=== PATIENT | female | born 1950 | race Caucasian/White ===

== ENCOUNTER → 2016-10-08 | Outpatient (CLI) | payer BC ==
[~2016-10-08] MED LIST: CLTP PO; GLCSC500400; LISI-787 PO; LRT5 PO; MULT-506 PO
--- NOTE | 2016-10-08 15:48 | MAMMOGRAPHY REPORT ---
BILATERAL DIGITAL SCREENING MAMMOGRAM WITH CAD: 10/08/2016 CLINICAL HISTORY: Routine screening. Patient has no complaints. TECHNIQUE: Bilateral CC and MLO views were obtained. Current study was also evaluated with a Comput er Aided Detection (CAD) system. COMPARISON: Comparison is made to exams dated: 09/26/2015 mammogram, 09/22/2014 mammogram, 09/21/2013 m ammogram, 09/19/2012 mammogram, 02/14/2012 mammogram, and 02/14/2012 ultrasound - [facility]. BREAST COMPOSITION: There are scattered areas of fibroglandular density in both breasts. FINDINGS: There is stable asymmetry in the lateral left breast. Scattered benign-appearing calcific ations in the left breast. No new suspicious mass, architectural distortion or cluster of microcalc ifications is seen. IMPRESSION: ACR BI-RADS CATEGORY 1: NEGATIVE There is no mammographic evidence of malignancy. A 1 year screening mammogram is recommended. The p atient will receive written notification of the results. Approximately 10% of breast cancers are not detected with mammography. A negative mammographic repor t should not delay biopsy if a clinically suggestive mass is present. Nanci Escoto M.D. ay/:10/08/2016 15:02:24 Board Certified Arts Therapist: Rona Ricardo, [facility] letter sent: Normal 1/2 BI-RADS Code: ACR BI-RADS Category 1: Negative
== END | disposition home or self-care (01) ==
LOC: C.MAMM 08:21
PROVIDERS: ATTEND Obstetrics & Gynecology
DX: Z12.31 Encounter for screening mammogram for malignant neoplasm of breast (principal)

== ENCOUNTER → 2017-10-10 | Outpatient (CLI) | payer BC ==
--- NOTE | 2017-10-10 15:32 | MAMMOGRAPHY REPORT ---
BILATERAL DIGITAL SCREENING MAMMOGRAM TOMOSYNTHESIS WITH CAD: 10/10/2017 CLINICAL HISTORY: Routine screening. Patient has no complaints. TECHNIQUE: Breast tomosynthesis in addition to standard 2D mammography was performed. Current study was also evaluated with a Computer Aided Detection (CAD) system. COMPARISON: Comparison is made to exams dated: 10/08/2016 mammogram, 09/26/2015 mammogram, 09/22/2014 ma mmogram, 09/21/2013 mammogram, 09/19/2012 mammogram, and 02/14/2012 mammogram - [facility]ter. BREAST COMPOSITION: There are scattered areas of fibroglandular density in both breasts. FINDINGS: No suspicious masses, calcifications, or areas of architectural distortion are noted in ei ther breast. There has been no significant interval change compared to prior exams. Benign-appearing left breast calcifications are again noted. IMPRESSION: ACR BI-RADS CATEGORY 2: BENIGN There is no mammographic evidence of malignancy. A 1 year screening mammogram is recommended. The pa tient will receive written notification of the results. Approximately 10% of breast cancers are not detected with mammography. A negative mammographic report should not delay biopsy if a clinically suggestive mass is present. Rox Sanchez M.D. /:10/10/2017 08:40:55 Mix Mill Tender: Zoe BRYAN)(Ariadna), [facility] letter sent: Normal 1/2 BI-RADS Code: ACR BI-RADS Category 2: Benign
== END | disposition home or self-care (01) ==
LOC: C.MAMM 08:19
PROVIDERS: ATTEND Obstetrics & Gynecology
DX: Z12.31 Encounter for screening mammogram for malignant neoplasm of breast (principal)

== ENCOUNTER 2023-12-18 15:47 | Inpatient (IN) ==
--- NOTE | 2023-12-18 15:59 | Emergency Department Note ---
Impression & Plan Atrial fibrillation with rapid ventricular response, Post-operative pain, Hypokalemia ED Provider Note NAME: RUFUS WHELAN AGE: 73 SEX: F : 1950 ARRIVES VIA: Ambulance INFORMANT: Patient ED PROVIDER(S): Arturo Quintanilla DO CHIEF COMPLAINT: Afib RVR HPI: Patient is a 73-year-old female with a past medical history of hypertension, hyperlipidemia, that presents to the ER for A-fib with RVR. She had a left knee scope performed at [facility] just prior to arrival for a partially torn meniscus. During the procedure she had went into A-fib with RVR. She was informed of this when she woke up. She was asymptomatic. She was transported via EMS from [facility] to [facility]. She was given 10 of Cardizem at the start of transportation. She denies any headache or change in vision. No chest pain or shortness of breath. No dizziness or lightheadedness. No other exacerbating or remitting factors. ADDITIONAL HISTORY OBTAINED: Per HPI Chronic Medical/Social Conditions Affecting Care: Per HPI PAST MEDICAL HISTORY:See Below PAST SURGICAL HISTORY:See Below FAMILY HISTORY:See Below SOCIAL HISTORY:See Below HOME MEDICATIONS:See Below ALLERGIES:See Below VITALS:See Below PHYSICAL EXAMINATION: GENERAL: Sitting up in bed, alert, well appearing, well nourished, no distress, non-toxic EYE EXAM: normal conjunctiva. PERRL and EOM's grossly intact. OROPHARYNX: no exudate, no erythema, lips, buccal mucosa, and tongue normal and mucous membranes are moist NECK: supple, no nuchal rigidity, no adenopathy, non-tender LUNGS: Clear to auscultation. Normal chest wall mechanics HEART: Tachycardic and irregular regular, S1 normal and S2 normal ABDOMEN: abdomen soft, non-tender, normo-active bowel sounds, no masses, no rebound or guarding. UPPER EXTREMITIES: upper extremities are grossly normal. LOWER EXTREMITIES: No pitting edema. NEURO EXAM: Normal sensorium, cranial nerves II-XII grossly intact, normal speech, no gross weakness of arms, no gross weakness of legs. MEDICAL DECISION MAKING: Patient is a 73-year-old female who presents ER for above-stated complaint. IV was established medicals obtained. Labs show no significant leukocytosis or anemia. BMP with mild hypokalemia at 3.4. LFTs, bilirubin, was unremarkable. Troponin was negative initially. Repeat troponin was obtained after patient converted following being placed on a Cardizem drip here and given another bolus. Heart rate has remained in the 50s to 60s. She is asymptomatic at this time. External records were reviewed from [facility] which shows an EKG on January 25, 2017 which had a right bundle branch block. Repeat troponin was elevated at just under 20. This did double. Favor that this likely rate related to the Afib w/ RVR and a combination of anesthesia/procedure and with this case was discussed with the hospitalist for further evaluation management treatment. Patient is currently asymptomatic and resting comfortably. Will defer to the hospitalist for further management. Consults/Care Managements Discussions: Per [facility] Triage Nursing notes reviewed. Limited review of prior medical records performed Vital Signs: reviewed and remarkable for no significant abnormalities Differential diagnosis: Cardiac ischemia, aortic dissection, pulmonary embolism, pneumothorax, pneumonia, pericarditis, myocarditis, esophageal rupture, GERD, cholecystitis, pancreatitis, musculoskeletal, as well as other pathologies. ER treatment provided: See below Diagnostics interpreted by me include EKG and cardiac monitoring as listed below: -Cardiac Monitoring: An order was placed for continuous cardiac monitoring. The monitor shows a rate of 145 with AFIB rhythm. -ECG: A-fib with RVR rate of 135 Normal axis Right bundle branch block QTc 435 EKG #2 Sinus rhythm rate of 72 Normal axis Right bundle branch block QTc 466 Sinus rhythm rate of 69 Normal axis Right bundle branch block Nonspecific ST wave changes in V1 through V3 QTc 454 External records were reviewed in regards to the EKG performed on January 25, 2017 which shows a right bundle branch block from [facility] with a rate of 56 -Laboratory studies:Interpreted by me as stated above in MDM and shown below. Imaging studies: Xrays: As interpreted by me:none CTs show: none Procedures:none Critical Care: I have personally spent 31 minutes of critical care time in the direct management of this patient. This includes bedside care, interpretation of diagnostic studies, and testing, discussion with consultants, patient, and family members, and other required patient management activities. This 31 minutes is in excess of all separately billable procedures. Past Med/Surg History Problem List (Updated 12/18/23 @ 18:35 by Arturo Quintanilla DO) Hypokalemia (Acute) Post-operative pain (Acute) Atrial fibrillation with rapid ventricular response (Acute) Medical History Hypertension Uterine leiomyoma Surgical History H/O tubal ligation History of cholecystectomy History of left oophorectomy Family History Aunt Breast cancer Grandfather (Maternal) Diabetes Grandmother (Maternal) Diabetes Mother Diabetes Denies family history of Ovarian cancer Colorectal cancer Social History (Updated 02/27/22 @ 09:49 by Maria Alejandra Knott LPN) Smoking Status: Never smoker Do You Dip or Chew Tobacco: No; Preferred Language: Macanese Feels Safe at Home: Yes Allergies Allergies Allergy/AdvReac Type Severity Reaction Status Date / Time promethazine Allergy Intermediate HIVES Verified 12/18/23 16:41 Home Meds Home Medications Medication Instructions Recorded Confirmed atorvastatin 40 mg tablet 40 mg PO DAILY 03/19/23 12/18/23 lisinopril 20 1 tab PO DAILY 03/19/23 12/18/23 mg-hydrochlorothiazide 25 mg tablet calcium carbonate 500 mg PO DAILY 12/18/23 12/18/23 multivitamin 1 tab PO DAILY 12/18/23 12/18/23 Results & Data (ED) Vital Signs Vital Signs - 24 hr 12/18/23 15:52 12/18/23 15:53 12/18/23 15:54 Temperature 36.4 C L Temperature Source Oral Pulse Rate 147 H 135 H Pulse Rate [Apical] Pulse Rate from SpO2 Sensor Respiratory Rate 16 Respiratory Depth Normal Blood Pressure 87/71 L Blood Pressure [Right Arm] Blood Pressure Mean 76 Blood Pressure Mean [Right Arm] Blood Pressure Position Semi-fowlers Pulse Oximetry 96 Oxygen Delivery Method Room Air Room Air Sepsis Recent Fever Within 48 Hours No Sepsis New/Unexplained Change in Mental Status No Sepsis Action Taken by Nursing No Action Required 12/18/23 16:00 12/18/23 16:00 12/18/23 16:01 Temperature Temperature Source Pulse Rate Pulse Rate [Apical] 146 H Pulse Rate from SpO2 Sensor Respiratory Rate 22 Respiratory Depth Blood Pressure 116/99 Blood Pressure [Right Arm] 116/99 Blood Pressure Mean 108 Blood Pressure Mean [Right Arm] 104 Blood Pressure Position Pulse Oximetry Oxygen Delivery Method Room Air Sepsis Recent Fever Within 48 Hours Sepsis New/Unexplained Change in Mental Status Sepsis Action Taken by Nursing 12/18/23 16:12 12/18/23 16:18 12/18/23 16:21 Temperature Temperature Source Pulse Rate 134 H Pulse Rate [Apical] Pulse Rate from SpO2 Sensor 116 H Respiratory Rate 27 H Respiratory Depth Blood Pressure 113/86 103/62 Blood Pressure [Right Arm] Blood Pressure Mean 94 91 Blood Pressure Mean [Right Arm] Blood Pressure Position Pulse Oximetry 94 Oxygen Delivery Method Sepsis Recent Fever Within 48 Hours Sepsis New/Unexplained Change in Mental Status Sepsis Action Taken by Nursing 12/18/23 16:26 12/18/23 16:36 12/18/23 16:45 Temperature Temperature Source Pulse Rate 120 H 166 H Pulse Rate [Apical] 135 H Pulse Rate from SpO2 Sensor Respiratory Rate 20 25 H Respiratory Depth Blood Pressure 90/65 L 131/97 Blood Pressure [Right Arm] 104/71 Blood Pressure Mean 80 108 Blood Pressure Mean [Right Arm] 82 Blood Pressure Position Pulse Oximetry 95 Oxygen Delivery Method Room Air Sepsis Recent Fever Within 48 Hours Sepsis New/Unexplained Change in Mental Status Sepsis Action Taken by Nursing 12/18/23 16:54 12/18/23 18:00 Temperature Temperature Source Pulse Rate 74 Pulse Rate [Apical] 61 Pulse Rate from SpO2 Sensor 75 Respiratory Rate 15 20 Respiratory Depth Blood Pressure 119/81 Blood Pressure [Right Arm] 127/74 Blood Pressure Mean 93 Blood Pressure Mean [Right Arm] 91 Blood Pressure Position Pulse Oximetry 96 96 Oxygen Delivery Method Room Air Sepsis Recent Fever Within 48 Hours Sepsis New/Unexplained Change in Mental Status Sepsis Action Taken by Nursing Laboratory Data 12/18/23 16:00 12/18/23 16:00 Lab Results 12/18/23 Range/Units 16:00 WBC 6.44 (4.8-10.8) K/ul RBC 5.35 (4.20-5.40) M/uL Hgb 16.5 H (12.0-16.0) g/dl Hct 49.0 H (37.0-47.0) % MCV 91.6 (80.0-100.0) fL MCH 30.8 (25.0-34.0) pg MCHC 33.7 (32.0-36.0) g/dL RDW Std Deviation 50.9 H (36.4-46.3) fL RDW Coeff of [place] 15.5 H (11.5-14.5) % Plt Count 292 (130-400) K/uL MPV 11.1 (9.4-12.4) fL Immature Gran % (Auto) 0.3 % Neut % (Auto) 84.5 % Lymph % (Auto) 10.6 % [place] % (Auto) 2.3 % Eos % (Auto) 1.7 % Baso % (Auto) 0.6 % Neut # (Auto) 5.44 (1.40-6.50) K/uL Lymph # (Auto) 0.68 L (1.20-3.40) K/uL [place] # (Auto) 0.15 (0.11-0.59) K/uL Eos # (Auto) 0.11 (0.00-0.50) K/uL Baso # (Auto) 0.04 (0.00-0.20) K/uL Immature Gran # (Auto) 0.02 (0.01-0.20) K/uL Sodium 141 (136-145) mmol/L Potassium 3.4 L (3.5-5.1) mmol/L Chloride 106 (98-107) mmol/L Carbon Dioxide 26 (21-32) mmol/L Anion Gap 9 (3-11) BUN 10 (6-23) mg/dl Creatinine 0.84 (0.6-1.2) mg/dl Est Cr Clr Drug Dosing 59.3 ml/min Est GFR ( Amer) 79.4 ml/min Est GFR (Non-Af Amer) 68.5 ml/min BUN/Creatinine Ratio 11.9 (10-20) Glucose 124 H (70-99(Fasting)) mg/dl Calcium 9.5 (8.6-10.3) mg/dl Total Bilirubin 1.1 H (0.2-1.0) mg/dl AST 26 (13-39) U/L ALT 20 (7-52) U/L Alkaline Phosphatase 87 (34-104) U/L Troponin I High Sens 8.2 (0-14) pg/ml Total Protein 7.1 (6.0-8.3) gm/dl Albumin 4.2 (3.4-5.0) gm/dl Globulin 2.9 (2.5-4.0) gm/dl Albumin/Globulin Ratio 1.4 (0.9-2) Lipase 19 (11-82) U/L Administered Medications Diltiazem HCl 125 mg/ Dextrose 125 mls @ 0 mls/hr IV .Q0M [facility]; Protocol Stop: 01/17/24 16:14 Last Titration: 12/18/23 16:53 Dose: 0 mg/hr, 0 mls/hr Documented By: VLADIMIR Co-signed By: VAL Admin: 12/18/23 16:45 Dose: 5 mg/hr, 5 mls/hr Documented By: VLADIMIR Co-signed By: BRISEIDA Discontinued Medications Diltiazem HCl (Diltiazem Hcl 5 Mg/Ml 5 Ml Vial) 10 mg IV NOW STA Stop: 12/18/23 16:08 Last Admin: 12/18/23 16:12 Dose: 10 mg Documented By: VLADIMIR Co-signed By: VAL Sodium Chloride (Nss) 1,000 mls @ 999 mls/hr IV .Q1H1M ONE Stop: 12/18/23 17:58 Last Admin: 12/18/23 17:52 Dose: 999 mls/hr Documented By: VLADIMIR Imaging Data Radiologist's Impression: Chest X-Ray 12/18/23 15:55 XR chest 1V portable CLINICAL HISTORY: Chest pain, nonspecific TECHNIQUE: Single frontal radiograph of the chest was obtained. Comparison: None available at the time of this dictation. FINDINGS: No lines and tubes are seen. The cardiomediastinal silhouette is normal. The lungs are clear. No evidence of pleural effusion or pneumothorax. IMPRESSION: No acute chest disease. ACT 112: Negative or not required by law. Electronically signed by: Kee Torres M.D. 12/18/2023 4:19 PM Discharge Plan Visit Data Chief Complaint: Cardiac Assessment Stated Complaint: AFIB ED Provider: Arturo Quintanilla Discharge Problem: Atrial fibrillation with rapid ventricular response, Post-operative pain, Hypokalemia Forms Stand Alone Forms: [facility] Prescriptions Prescriptions: No Action lisinopril-hydrochlorothiazide 20-25 mg tablet 1 tab PO DAILY atorvastatin 40 mg tablet 40 mg PO DAILY multivitamin [Daily Multivitamin] Tablet 1 tab PO DAILY calcium carbonate [Tums 500] 500 mg calcium (1,250 mg) Tablet,Chewable 500 mg PO DAILY Referrals Referrals: Dave Begum, [Primary Care Provider] -
[2023-12-18] MEDS: dilTIAZem HCl 5 MG/ML 5 ML VIAL IV STA (16:12)
--- NOTE | 2023-12-18 16:21 | XRay Report ---
XR chest 1V portable CLINICAL HISTORY: Chest pain, nonspecific TECHNIQUE: Single frontal radiograph of the chest was obtained. Comparison: None available at the time of this dictation. FINDINGS: No lines and tubes are seen. The cardiomediastinal silhouette is normal. The lungs are clear. No evid ence of pleural effusion or pneumothorax. IMPRESSION: No acute chest disease. ACT 112: Negative or not required by law. Electronically signed by: Kee Torres M.D. 12/18/2023 4:19 PM
[2023-12-18 16:28] LABS: Basophils # (auto) 0.04 K/uL (0.00-0.20); Basophils % (auto) 0.6 %; Eosinophils # (auto) 0.11 K/uL (0.00-0.50); Eosinophils % (auto) 1.7 %; Hemoglobin 16.5 g/dl (12.0-16.0); Immature Granulocytes # (auto) 0.02 K/uL (0.01-0.20); Immature Granulocytes % (auto) 0.3 %; Lymphocytes # (auto) 0.68 K/uL (1.20-3.40); Lymphocytes % (auto) 10.6 %; Mean Corpuscular Hemoglobin 30.8 pg (25.0-34.0); Mean Corpuscular Hgb Conc 33.7 g/dL (32.0-36.0); Mean Corpuscular Volume 91.6 fL (80.0-100.0); Mean Platelet Volume 11.1 fL (9.4-12.4); Monocytes # (auto) 0.15 K/uL (0.11-0.59); Monocytes % (auto) 2.3 %; Neutrophils # (auto) 5.44 K/uL (1.40-6.50); Neutrophils % (auto) 84.5 %; Platelet Count 292 K/uL (130-400); RDW Coefficient of Variation 15.5 % (11.5-14.5); RDW Standard Deviation 50.9 fL (36.4-46.3); Red Blood Count 5.35 M/uL (4.20-5.40); White Blood Count 6.44 K/ul (4.8-10.8)
[2023-12-18] MEDS: dilTIAZem HCL 125 MG in DEXTROSE 5% 100 ML IV SCH (16:45)
[2023-12-18 16:46] LABS: Albumin Globulin Ratio 1.4 (0.9-2); Albumin Level 4.2 gm/dl (3.4-5.0); BUN Creatinine Ratio 11.9 (10-20); Bilirubin,Total 1.1 mg/dl (0.2-1.0); Calcium 9.5 mg/dl (8.6-10.3); Creatinine Clr Calc Pharmacy 59.3 ml/min; Est GFR (African American) 79.4 ml/min; Est GFR (Non-African American) 68.5 ml/min; Globulin 2.9 gm/dl (2.5-4.0); Potassium 3.4 mmol/L (3.5-5.1); Total Protein 7.1 gm/dl (6.0-8.3)
[2023-12-18 16:53] LABS: Troponin I High Sensitivity 8.2 pg/ml (0-14)
[2023-12-18] MEDS: SODIUM CHLORIDE 0.9% 1,000 ML IV ONE (17:52)
[2023-12-18 18:48] LABS: Troponin I High Sensitivity 19.9 pg/ml (0-14)
[2023-12-18] MEDS: POTASSIUM CHLORIDE CRTAB 20 MEQ TABCR PO STA (19:14)
--- NOTE | 2023-12-18 19:44 | History & Physical Report ---
Date of Service December 18, 2023 Assessment & Plan (1) Atrial fibrillation with rapid ventricular response: (2) Hypokalemia: (3) S/P arthroscopic knee surgery: (4) Hypertension: (5) Dyslipidemia: Plan: Assessment and Plan per Dr Gandhi: Patient is a 73-year-old female with past medical history of hyperlipidemia, hypertension who was sent to the ED for atrial fibrillation with RVR. Patient had left knee arthroscopy today at outside facility for partially torn meniscus. During the procedure; patient went into atrial fibrillation with rapid ventricular rate. Patient denies chest pain, palpitation or shortness of breath. Patient was given Cardizem in ED; converted to normal sinus rhythm. Atrial fibrillation with RVR, converted to sinus rhythm EKG on admission personally reviewed; atrial fibrillation with RBBB. Ventricul ar rate of 135 Repeat EKG shows normal sinus rhythm with right bundle branch block Last echocardiogram in April 2017; EF of 60 to 64%; mild focal thickening of the anterior mitral valve leaflet without prolapse. Left ventricular cavity size normal. Will place the patient on metoprolol tartrate 12.5 mg twice daily starting tonight as her heart rate in sinus rhythm is around 60s. Obtain echocardiogram. Obtain TSH [id number] score of 3(age, female, hypertension). Given recent arthroscopic procedure; risks of hematoma is significantly high. Will need orthopedics clearance before being started on anticoagulation. Discussed with patient; she is in agreement. Elevated high sensitive troponin in setting of atrial fibrillation High sensitive troponin of 8 on admission; increased to 19.9. Will repeat high sensitivity troponin again Obtain echocardiogram Hypokalemiareplete with supplement Hypertensioncontinue on lisinopril/hydrochlorothiazide Hyperlipidemia -continue on Lipitor 40 mg once a day Full code DVT prophylaxis SCDs Time spent evaluating patient, direct bedside care, chart review, placing orders, interpretation of diagnostic studies, discussion with consultants, patient, and family members, as well as other required patient management activities is 75 minutes Please note the above document was generated using voice recognition software. It may contain grammatical, syntax or spelling errors. Any formal questions or concerns about the content, text or information contained within the body of this dictation should be directly addressed to the provider for clarification History of Present Illness Chief Complaint: Tachycardia Primary Care Provider: Dave Begmu DO Patient is 73 year old female with PMH HTN, dyslipidemia presented to ER from outpatient surgical center for a-fib RVR. Was getting outpatient arthroscopic left knee meniscal repair today at [facility] surgical center. Post op it was noted patient had tachycardia up to 150's. Patient states "may have felt a little nervous sensation in her chest" at that time. Denies dizziness, SOB, CP. Denies history atrial fibrillation in past. Denies fever/chills, diaphoresis, N/V/D/C, DURON, dizziness, syncope, vision changes, neck pain, orthopnea, cough, sore throat, rhinorrhea, abdominal pain, paresthesias, weakness, extremity edema, rashes, urinary symptoms. Reported patient was given bolus Cardizem prior to ER arrival. Upon ER arrival still tachycardic with afib RVR and RBBB on EKG and was given Cardizem bolus and drip and since converted to normal sinus rhythm. Allergies Allergy/AdvReac Type Severity Reaction Status Date / Time promethazine Allergy Intermediate HIVES Verified 12/18/23 16:41 Home Medications Medication Instructions Recorded Confirmed Type atorvastatin 40 mg tablet 40 mg PO DAILY 03/19/23 12/18/23 History lisinopril 20 1 tab PO DAILY 03/19/23 12/18/23 History mg-hydrochlorothiazide 25 mg tablet multivitamin 1 tab PO DAILY 12/18/23 12/18/23 History apixaban 5 mg tablet (Eliquis) 5 mg PO BID #60 tabs 12/20/23 Rx potassium chloride 20 mEq 20 meq PO QAM #30 tabs 12/20/23 Rx tablet,extended release(part/cryst) Past Med/Surg History Problem List (Updated 12/19/23 @ 12:00 by Marleni Smith PA-C) RBBB S/P arthroscopic knee surgery Dyslipidemia Hypertension Hypokalemia (Acute) Post-operative pain (Acute) Atrial fibrillation with rapid ventricular response (Acute) Medical History (Updated 12/19/23 @ 12:00 by Marleni Smith PA-C) Elevated troponin I level Uterine leiomyoma Surgical History (Updated 12/18/23 @ 20:04 by Hannah Henderson PA-C) H/O tubal ligation History of left oophorectomy History of cholecystectomy Family History Aunt Breast cancer Grandfather (Maternal) Diabetes Grandmother (Maternal) Diabetes Mother Diabetes Denies family history of Ovarian cancer Colorectal cancer Social History Smoking Status: Never smoker Do You Dip or Chew Tobacco: No; Hx Alcohol Use: No Hx Substance Use: No Preferred Language: Taiwanese Communication Ability: Effective Strip Feeder Required: No Beliefs That Will Affect Care: None Current Living Situation: Spouse Feels Safe at Home: Yes Assistive Devices: Cane, Crutches and Walker Review of Systems Review of Systems: All systems reviewed & are unremarkable except as noted in HPI & below Physical Exam Physical Exam: Constitutional: WD/WN, vitals as above, NAD, sitting up in bed, pleasant, conversing easily Respiratory: normal respiratory effort, lungs clear to auscultation, no wheeze, rales, rhonchi. Normal insp/exp effort, no accessory muscle use Cardiovascular: RRR, no murmur, no edema Vessels: no JVD or carotid bruit Chest: normal inspection of chest Abdomen: normal bowel sounds, soft, nontender, no hepatosplenomegaly Musculoskeletal: Left knee bandaged with Kerlix; unable to wiggle her toes. Sensation intact. Neurologic: PERRL, EOMI, accommodation nl, no face palsy, no dysarthria CN's II- XI intact bilaterally and moves all extremities Psychiatric: A+Ox3, euthymic affect Results & Data Results & Data Vital Signs (Past 12 Hours) Vital Signs Temp Pulse Pulse Resp BP BP Pulse Ox 12/18/23 19:14 97 12/18/23 18:00 61 20 127/74 96 12/18/23 16:54 74 15 119/81 96 12/18/23 16:45 166 H 25 H 131/97 12/18/23 16:36 135 H 20 104/71 95 12/18/23 16:26 120 H 90/65 L 12/18/23 16:21 134 H 27 H 94 12/18/23 16:18 103/62 12/18/23 16:12 113/86 12/18/23 16:01 146 H 22 116/99 12/18/23 16:00 116/99 12/18/23 16:00 12/18/23 15:54 135 H 12/18/23 15:53 12/18/23 15:52 36.4 C L 147 H 16 87/71 L 96 O2 Del Method 12/18/23 19:14 Room Air 12/18/23 18:00 Room Air 12/18/23 16:54 12/18/23 16:45 12/18/23 16:36 Room Air 12/18/23 16:26 12/18/23 16:21 12/18/23 16:18 12/18/23 16:12 12/18/23 16:01 12/18/23 16:00 12/18/23 16:00 Room Air 12/18/23 15:54 12/18/23 15:53 Room Air 12/18/23 15:52 Room Air Laboratory Results Short CBC 12/18/23 Range/Units 16:00 WBC 6.44 (4.8-10.8) K/ul Hgb 16.5 H (12.0-16.0) g/dl Hct 49.0 H (37.0-47.0) % Plt Count 292 (130-400) K/uL BMP 12/18/23 16:00 Sodium 141 Potassium 3.4 L Chloride 106 Carbon Dioxide 26 BUN 10 Creatinine 0.84 Glucose 124 H Calcium 9.5 Liver Function 12/18/23 Range/Units 16:00 Total Bilirubin 1.1 H (0.2-1.0) mg/dl AST 26 (13-39) U/L ALT 20 (7-52) U/L Alkaline Phosphatase 87 (34-104) U/L Albumin 4.2 (3.4-5.0) gm/dl Diagnostic Findings Chest X-Ray 12/18/23 15:55 XR chest 1V portable CLINICAL HISTORY: Chest pain, nonspecific TECHNIQUE: Single frontal radiograph of the chest was obtained. Comparison: None available at the time of this dictation. FINDINGS: No lines and tubes are seen. The cardiomediastinal silhouette is normal. The lungs are clear. No evidence of pleural effusion or pneumothorax. IMPRESSION: No acute chest disease. ACT 112: Negative or not required by law. Electronically signed by: Kee Torres M.D. 12/18/2023 4:19 PM
--- NOTE | 2023-12-18 20:25 | Electrocardiogram Report ---
Test Reason : Blood Pressure : / mmHG Vent. Rate : 135 BPM Atrial Rate : 119 BPM P-R Int : 000 ms QRS Dur : 124 ms QT Int : 290 ms P-R-T Axes : 000 187 -19 degrees QTc Int : 435 ms Atrial fibrillation with rapid ventricular response Right bundle branch block Abnormal ECG When compared with ECG of 21-OCT-1998 10:14, Atrial fibrillation is now Present Right bundle branch block is now Present HR has increased Confirmed by Saad Hernandez ([id number]) on 12/18/2023 8:24:59 PM Referred By: Confirmed By:Saad Hernandez
[2023-12-18 20:30] LABS: Magnesium 1.9 mg/dl (1.7-2.4); Thyroid Stimulating Hormone 1.378 uIu/ml (0.300-4.500)
[2023-12-18] MEDS: METOPROLOL TARTRATE 25 MG TAB PO ONE (21:01)
[2023-12-18] MEDS ORDERED: POLYETHYLENE (MIRALAX) 17 GM PACK PO PRN (21:34)
[2023-12-18] MEDS ORDERED: ONDANSETRON INJ 2 MG/ML 2 ML VIAL IV PRN (21:34)
--- OUTSIDE RECORDS SUMMARY | 2023-12-19 04:48 | External Medical Summary | Summary of Care ---
Author Name Unknown Organization [facility] Address [address] [place] [address] Phone [phone] Care Team Providers Care Parcel Post Delivery Name Role Phone Dave Begum DO Primary Care Provider [phone] Reason for Visit * Reason Comments Outpatient Testing Encounter Details Date Type Department Care Team (Latest Contact Info) Description 09/10/2023 8:10 AM EDT Laboratory Laboratory [facility] [address] [place] [id number] [facility] [address] [place] [address] Pure hypercholesterolemia Allergies Active Allergy Reactions Criticality Noted Date Comments Promethazine Hcl Other (Please comment) Medium 009 Injected vein caused lumps and soreness at an IV site documented as of this encounter (statuses as of 09/10/2023) Medications Medication Sig Dispensed Refills Start Date End Date Status CENTRUM SILVER PO TABS daily 0 Ac tive CALCIUM + D 250-125 MG-UNIT PO TABS daily 0 Active Triamcinolone Acetonide 0.1 % External Cream (Aristocort) Apply topically to affected area 2 times a day. Apply to bites as needed 80 g 1 08/10/2022 Active Atorvastatin Calcium 40 MG Oral Tablet (Lipitor)Indications:Pure hypercholesterolemia Take 1 Tablet by mouth in the morning. 90 Tablet 3 08/10/2022 Active Baclofen 10 MG Oral Tablet (Lioresal)Indications:Acu te right-sided low back pain without sciatica Take 1 Tablet by mouth 2 times a day as needed for Pain. 20 Tablet 0 08/31/2022 Active Fluorouracil 5 % External Cream (Efudex) Apply to rough areas right cheek and nose twice daily for 3 weeks 40 g 0 03/29/2023 Active Lisinopril-hydroCHLOROthi azide 20-25 MG Oral TabletIndications:HTN, goal below 140/90 Take 1 Tablet by mouth in the morning. in the morning.. 90 Tablet 0 08/28/2023 Active documented as of this encounter (statuses as of 09/10/2023) Active Problems Problem Noted Date Diagnosed Date Pure hypercholesterolemia 07/12/2020 Microscopic colitis 02/17/2018 Essential hypertension with goal blood pressure less than 140/90 05/08/2016 History of sciatica 05/04/2013 History of basal cell carcinoma 12/08/2012 FAM HX-AAA 06/13/2008 Overview: Normal US, repeat 3-5 yrs, fam history of AAA, COMMON MIGRAINE WITHOUT MENTION OF INTRACTABLE M IGRAINE Family history of melanoma Overview: sister age 20 documented as of this encounter (statuses as of 09/10/2023) Resolved Problems Problem Noted Date Diagnosed Date Resolved Date Other microscopic colitis 08/09/2017 Counseling regarding advanced directives 11/06/2016 02/23/2019 Actinic keratosis 12/09/2013 08/18/2018 Sciatica 05/04/2013 09/05/2015 Overview: Bulging disk, left sciatica, Dr. Khoury, L4-5 Hypertension goal BP (blood pressure) < 130/80 06/11/2011 05/08/2016 Acute bronchitis, complicated 09/18/2009 12/05/2009 Other chest pain 10/21/2002 02/17/2018 documented as of this encounter (statuses as of 09/10/2023) Immunizations Name Administration Dates Next Due COVID-19 mRNA, LNP-s, No Pre serve, 2-Dose Series ([employer]) 02/23/2021,07/23/2020,07/02/2020 H1N1 2009 Influenza, IM 06/06/2009 Pneumococcal Conjugate Vacc, 13 Valent (Prevnar) 03/03/2015 Pneumococcal Polysaccharide PPV23 (Pneumovax) 03/13/2016 Season Influenza, Quad, PF, Adjuvanted, 65+ Yrs, IM (FLUAD) 02/06/2020 Seasonal Influenza, PF, 6 M & above, IM , (FluLaval or Fluzone) 02/23/2019,02/17/2018,04/29/2017 Seasonal Influenza, Quadriva lent Hd (Fluzone Hd) 02/18/2023,01/31/2022,02/11/2021 Seasonal Influenza, Quadriva lent, No Preserve, IM 03/13/2016,03/03/2015 Seasonal Influenza, Split, I IV3, With Preserve, Inj 02/05/2013,03/14/2012,06/11/2011,01/25,03/10/2009 TDAP (age 10 and older)(Boostrix) 01/25/2021 TDAP (age 11 and older)(Adacel) 06/07/2010 Varicella Zoster Vaccine (Adult) 12/11/2016 Zoster Vaccine Recombinant (Shingrix) 11/09/2020 ,08/25/2020 documented as of this encounter Social History Tobacco Use Types Packs/Day Years Used Date Smoking Tobacco: Never Smokeless Tobacco: Never Alcohol Use Standard Drinks/Week Comments Not Currently 0 (1 standard drink = 0.6 oz pur e alcohol) PHQ-2 Answer Date Recorded PHQ Adult Total Score 0 01/23/2021 Sex and Gender Information Value Date Recorded Sex Assigned at Female 08/18/2018 8:52 AM EDT Gender Identity Female 08/18/2018 8:52 AM EDT Sexual Orientation Straight 08/18/2018 8: 52 AM EDT Job Start Date Occupation Industry Not on file Not on file Not on file documented as of this encounter Plan of Treatment Upcoming Encounters Date Type Department Care Team (Late st Contact Info) Description 09/17/2023 3:20 PM EDT Office Visit [facility] [address] [place] [address] Dave Begum, DO [address] [place] [id number] 09/27/2023 10:00 AM EDT Office Visit Dermatology [facility] [address] [place] [address] [address] Murray Mcqueen MD [address] [place] [id number] Pending Results Name Type Priority Associated Diagnoses Date /Time COMPREHENSIVE METABOLIC PANEL Lab Routine Pure hypercholesterolemia 09/10/2023 7:43 AM EDT LIPID PANEL WITH DIRECT LDL IF TG IS HIGH Lab Routine Pure hypercholesterolemia 09/10/2023 7:43 AM EDT Scheduled Procedures Name Priority Associated Diagnoses Date/Ti me COLONOSCOPY FLEXIBLE PROXIMAL DIAGNOSTIC Recall History of colon polyps Health Maintenance Due Date Last Done Comments Depression Screening 01/23/2022 01/23/2021 COVID-19 Vaccine ( season) 2023 02/23/2021, 07/23/2020, 07/02/2020 GFR 08/07/2023 08/06/2022, 030 08/2021, 07/13/2020, Additional history exists Mammogram 10/27/2023 10/26/2022, 09/26, 10/20/2020, Additional history exists COLONOSCOPY-EVERY 3 YRS AGES 18-100 06/21/2025 06/21/2022, 06/21/2022, 06/11/2017, Additional history exists Albumin/Creatinine Ratio 08/06/2025 08/06/2022 DXA Scan 03/26/2027 03/26/2022, 03/23/2015 Lipid Panel 08/07/2027 08/06/2022, 03/0 08/2021, 07/13/2020, Additional history exists DTaP,Tdap,and Td Vaccines (3 - Td or Tdap) 01/25/2031 01/25/2021, 06/07/2010, 12/22/1998 Pneumococcal Vaccine: 65+ Years Completed 03/13/2016, 03/03/2015, 08/07/2004 Zoster Vaccines Completed 11/09/2020, 04/0 05/2020, 12/11/2016 COLONOSCOPY-EVERY 5 YRS AGES 18-100 Discontinued 06/21/2022, 06/21/2022, 06/11/2017, Additional history exists Influenza Vaccine (FLU shot) Completed 02/18/2023, 01/31/2022, 02/11/2021, Additional history exists GARDASIL-HPV IMMUNIZATION SERIES Aged Out No longer eligible based on patient's age to complete this topic Hepatitis B Aged Out No longer eligi ble based on patient's age to complete this topic MENINGOCOCCAL (MENACTRA/MENVEO) Aged Out No longer eligible based on patient's age to complete this topic documented as of this encounter Medical Devices Not on filedocumented as of this encounter Visit Diagnoses Diagnosis Pure hypercholesterolemia documented in this encounter Care Teams Parcel Post Delivery Relationship Specialty Start Date End Date Dave Begum DO [address] [place] [address] PCP - General Family Medicine 11/06/16 documented as of this encounter
--- OUTSIDE RECORDS SUMMARY | 2023-12-19 04:48 | External Medical Summary | Summary of Care ---
Author Name Unknown Organization [facility] Address [address] [place] [address] Phone [phone] Care Team Providers Care Educational Manager Name Role Phone Kel Dave Ciaran BAXTER Primary Care Provider [phone] Reason for Visit * Reason Onset Date Comments Films 11/26/2023 Encounter Details Date Type Department Care Team (Late st Contact Info) Description 11/26/2023 Telephone Radiology Film [facility] [address] [place], [place] [id number] James Paul, DO [address] [place] [address] Films Allergies Active Allergy Reactions Criticality Noted Date Comments Promethazine Hcl Other (Please comment) Medium 009 Injected vein caused lumps and soreness at an IV site documented as of this encounter (statuses as of 11/26/2023) Medications Medication Sig Dispensed Refills Start Date End Date Status CENTRUM SILVER PO TABS daily Ac tive CALCIUM + D 250-125 MG-UNIT PO TABS daily Active Triamcinolone Acetonide 0.1 % External Cream (Aristocort) Apply topically to affected area 2 times a day. Apply to bites as needed 80 g 1 3 Active Baclofen 10 MG Oral Tablet (Lioresal)Indications:Acu te right-sided low back pain without sciatica Take 1 Tablet by mouth 2 times a day as needed for Pain. 20 Tablet 3 Active Additional Information Patient not taking.Reported on 09/27/2023 Fluorouracil 5 % External Cream (Efudex) Apply to rough areas right cheek and nose twice daily for 3 weeks 40 g 3 Active Atorvastatin Calcium 40 MG Oral Tablet (Lipitor)Indications:Pure hypercholesterolemia Take 1 Tablet by mouth in the morning. 90 Tablet 3 4 Active Lisinopril-hydroCHLOROthi azide 20-25 MG Oral TabletIndications:HTN, goal below 140/90 Take 1 Tablet by mouth in the morning. in the morning.. 90 Tablet 3 4 Active Clobetasol Propionate 0.05 % External Cream (Temovate) Apply to rash on neck and arms twice a day until resolved 60 g 1 4 Active documented as of this encounter (statuses as of 11/26/2023) Active Problems Problem Noted Date Diagnosed Date [...] as of this encounter (statuses as of 11/26/2023) Resolved Problems Problem Noted Date Diagnosed Date Resolved Date Other microscopic colitis 08/09/2017 Counseling regarding advanced directives 11/06/2016 02/23/2019 Actinic keratosis 12/09/2013 08/18/2018 Sciatica 05/04/2013 09/05/2015 Overview: Bulging disk, left sciatica, Dr. Khoury, L4-5 Hypertension goal BP (blood pressure) < 130/80 06/11/2011 05/08/2016 Acute bronchitis, complicated 09/18/2009 12/05/2009 Other chest pain 10/21/2002 02/17/2018 documented as of this encounter (statuses as of 11/26/2023) Immunizations Name Administration Dates Next Due COVID-19 mRNA, LNP-s, No Pre serve, 2-Dose Series (Hyperoptic) 02/23/2021,07/23/2020,07/02/2020 H1N1 2009 Influenza, IM 06/06/2009 Pneumococcal [...] 02/05/2013,03/14/2012,06/11/2011,01/25,03/10/2009 TDAP (age 10 and older)(Boostrix) 01/25/2021 TDAP, Age 7 and older, IM (Adacel) 06/07/2010 Varicella Zoster Vaccine (Adult) 12/11/2016 Zoster Vaccine Recombinant (Shingrix) 11/09/2020 ,08/25/2020 documented as of this encounter Social History Tobacco Use Types Packs/Day Years Used Date Smoking Tobacco: Never Smokeless Tobacco: Never Alcohol Use Standard Drinks/Week Comments Not Currently 0 (1 standard drink = 0.6 oz pur e alcohol) PHQ-2 Answer Date Recorded PHQ Adult Total Score 0 09/17/2023 Utilities Answer Date Recorded Do you have trouble paying y our heating, water, or electric bill? (Adult - for ages 18 years and over) Not on file 11/12/2023 Is your family able to pay t he heat, water, or electric bill? (Household - for ages 0-17 years) Not on file 11/12/2023 Does your family have access to good internet? (Household - for ages 0-17 years) Not on file 11/12/2023 Social Connections Answer Date Recorded How often do you feel lonely or isolated from those around you? (Adult - for ages 18 years and over) Not on file 11/12/2023 Sex and Gender Information Value Date Recorded Sex Assigned at Female 08/18/2018 8:52 AM EDT Gender Identity Female 08/18/2018 8:52 AM EDT Sexual Orientation Straight 08/18/2018 8: 52 AM EDT Job Start Date Occupation Industry Not on file Not on file Not on file documented as of this encounter Miscellaneous Notes * Telephone Encounter - Mustapha Rubio, Epic Support - 11/26/2023 10:[address] [facility] requesting 11-23-2023 images be pushed to their system. [place] Authorization to Release on file. Images pushed to [facility] external connection through PACs Associated report(s) not needed. documented in this encounter Plan of Treatment Upcoming Encounters Date Type Department Care Team (Late st Contact Info) Description 04/01/2024 3:40 PM EST Office Visit Family Practice [facility] [place] [address] [facility] [place], [place] [address] Dave Begum, [address] [facility] [place] [address] Scheduled Procedures Name Priority Associated Diagnoses Date/Ti me COLONOSCOPY FLEXIBLE PROXIMAL DIAGNOSTIC Recall History of colon polyps Health Maintenance Due Date Last Done Comments Cologuard 1994 Fecal Occult Blood Test 1994 Sigmoidoscopy 1994 COVID-19 Vaccine ( season) 2023 02/23/2021, 07/23/2020, 07/02/2020 Mammogram 10/27/2023 10/26/2022, 05/05/2021, 10/20/2020, Additional history exists Influenza Vaccine (FLU shot) (#1) 2024 02/18/2023, 01/31/2022, 02/11/2021, Additional history exists GFR 09/09/2024 09/10/2023, 07/25, 07/28/2021, Additional history exists Depression Screening 09/16/2024 09/17/2023 Colonoscopy 06/21/2025 06/21/2022, 05/28, 06/11/2017, Additional history exists Colorectal Cancer Screening 06/21/2025 Albumin/Creatinine Ratio 08/06/2025 08/06/2022 DXA Scan 03/26/2027 03/26/2022, 03/23/2015 Lipid Panel 09/09/2028 09/10/2023, 07/25, 07/28/2021, Additional history exists DTaP,Tdap,and Td Vaccines (3 - Td or Tdap) 01/25/2031 01/25/2021, 06/07/2010, 12/22/1998 Pneumococcal Vaccine: 65+ Years Completed 03/13/2016, 03/03/2015, 08/07/2004 Zoster Vaccines Completed 11/09/2020, 05/2020, 12/11/2016 RETIRED - COLONOSCOPY-EVERY 5 YRS AGES 18-100 Discontinued 06/21/2022, 06/21/2022, 06/11/2017, Additional history exists GARDASIL-HPV IMMUNIZATION SERIES Aged [...] Not on filedocumented as of this encounter Care Teams Educational Manager Relationship Specialty Start Date End Date Dave Begum DO [address] [place] [address] PCP - General Family Medicine 11/06/16 documented as of this encounter
--- OUTSIDE RECORDS SUMMARY | 2023-12-19 04:48 | External Medical Summary | Summary of Care ---
Author Name Unknown Organization [facility] Address [address] [facility] [place] [address] Phone [phone] Care Team Providers Care Health And Safety Technician Name Role Phone Dave Begum DO Primary Care Provider [phone] Reason for Visit * Reason Onset Date Comments Health Maintenance 10/03/2023 Encounter Details Date Type Department Care Team (Late st Contact Info) Description 10/03/2023 Telephone Family Practice [facility] [place] [address] [facility] [place] [address] Dave Begum DO [address] [facility] [place] [address] Health Maintenance Allergies Active Allergy Reactions Criticality Noted Date Comments Promethazine Hcl Other (Please comment) Medium 009 Injected vein caused lumps and soreness at an IV site documented as of this encounter (statuses as of 10/03/2023) Medications Medication Sig Dispensed Refills Start Date [...] as needed for Pain. 20 Tablet 0 3 Active Additional Information Patient not taking.Reported on 09/27/2023 Fluorouracil 5 % External Cream (Efudex) Apply to rough areas right cheek and nose twice daily for 3 weeks 40 g 0 3 Active Atorvastatin Calcium 40 MG Oral [...] as of this encounter (statuses as of 10/03/2023) Active Problems Problem Noted Date Diagnosed Date [...] as of this encounter (statuses as of 10/03/2023) Resolved Problems Problem Noted Date Diagnosed Date Resolved Date Other microscopic colitis 08/09/2017 Counseling regarding advanced directives 11/06/2016 02/23/2019 Actinic keratosis 12/09/2013 08/18/2018 Sciatica 05/04/2013 09/05/2015 Overview: Bulging disk, left sciatica, Dr. Khoury, L4-5 Hypertension goal BP (blood pressure) < 130/80 06/11/2011 05/08/2016 Acute bronchitis, complicated 09/18/2009 12/05/2009 Other chest pain 10/21/2002 02/17/2018 documented as of this encounter (statuses as of 10/03/2023) Immunizations Name Administration Dates Next Due COVID-19 mRNA, LNP-s, No Pre serve, 2-Dose Series (Pfizer) 02/23/2021,07/23/2020,07/02/2020 H1N1 2009 Influenza, IM 06/06/2009 Pneumococcal [...] Recorded PHQ Adult Total Score 0 09/17/2023 Sex and Gender Information Value Date Recorded Sex Assigned at Female 08/18/2018 8:52 AM EDT Gender Identity Female 08/18/2018 8:52 AM EDT Sexual Orientation Straight 08/18/2018 8: 52 AM EDT Job Start Date Occupation Industry Not on file Not on file Not on file documented as of this encounter Miscellaneous Notes * Telephone Encounter - Tonya Gordon TANNER - 10/03/2023 8:51 AM EDT Care Gaps Comprehensive Care Outreach Last Office/Telemedicine Visit: 09/17/2023 (in office), Visit date not found (telemedicine) Next Office Visit: 04/01/2024 Hemoglobin AIC Results: No results found for: "HEMOGLOBIN A1C" BP Readings from Last 1 Encounters: 09/17/23 132/76 Reviewed Health Maintenance below: Health Maintenance Topic Date Due COVID-19 Vaccine ( season) 2023 Mammogram 10/27/2023 GFR 09/09/2024 Depression Screening 09/16/2024 Mamm [facility] Care Gap Outreach Action Taken: Outreach not indicated documented in this encounter Plan of Treatment Upcoming Encounters Date Type Department Care Team (Late st Contact Info) Description 04/01/2024 3:40 PM EST Office Visit Family Practice [facility] [place] [address] [facility] [place] [address] Dave Begum, [address] [facility] [place] [address] Scheduled Procedures Name Priority Associated Diagnoses Date/Ti me COLONOSCOPY FLEXIBLE PROXIMAL DIAGNOSTIC Recall History of colon polyps Health Maintenance Due Date Last Done Comments Cologuard 1994 Fecal Occult Blood Test 1994 Sigmoidoscopy 1994 COVID-19 Vaccine ( season) 2023 02/23/2021, 07/23/2020, 07/02/2020 Mammogram 10/27/2023 10/26/2022, 09/26, 10/20/2020, Additional history exists GFR 09/09/2024 09/10/2023, 07/25, [...] 03/13/2016, 03/03/2015, 08/07/2004 Zoster Vaccines Completed 11/09/2020, 04/05/2020, 12/11/2016 RETIRED - COLONOSCOPY-EVERY 5 YRS AGES [...] filedocumented as of this encounter Care Teams Health And Safety Technician Relationship Specialty Start Date End Date Dave Begum DO [address] [place] [address] PCP - General Family Medicine 11/06/16 documented as of this encounter
--- OUTSIDE RECORDS SUMMARY | 2023-12-19 04:48 | External Medical Summary | Summary of Care ---
Author Name Unknown Organization [facility] Address [address] [place] [address] Phone [phone] Care Team Providers Care Plant Anatomist Name Role Phone Riley Cantrell DO Primary Care Provider [phone] Reason for Visit * Reason Onset Date Comments Medication Refill 08/27/2023 Encounter Details Date Type Department Care Team (Late st Contact Info) Description 08/27/2023 Refill Family Practice [facility] [place] [address] [place] [address] Riley Cantrell DO [address] [facility] [place] [address] HTN, goal below 140/90 Allergies Active Allergy Reactions Criticality Noted Date Comments Promethazine Hcl Other (Please comment) Medium 009 Injected vein caused lumps and soreness at an IV site documented as of this encounter (statuses as of 09/07/2023) Medications Medication Sig Dispensed Refills Start Date End Date Status CENTRUM SILVER PO TABS daily 0 Ac tive CALCIUM + D 250-125 MG-UNIT PO TABS daily 0 Active Triamcinolone Acetonide 0.1 % External Cream (Aristocort) Apply topically to affected area 2 times a day. Apply to bites as needed 80 g 1 3 Active Atorvastatin Calcium 40 MG Oral Tablet (Lipitor)Indications:Pure hypercholesterolemia Take 1 Tablet by mouth in the morning. 90 Tablet 3 3 Active Baclofen 10 MG Oral Tablet (Lioresal)Indications:Acu te right-sided low back pain without sciatica Take 1 Tablet by mouth 2 times a day as needed for Pain. 20 Tablet 0 3 Active Fluorouracil 5 % External Cream (Efudex) Apply to rough areas right cheek and nose twice daily for 3 weeks 40 g 0 3 Active Lisinopril-hydroCHLOROthi azide 20-25 MG Oral TabletIndications:HTN, goal below 140/90 Take 1 Tablet by mouth in the morning. in the morning.. 90 Tablet 0 4 Active Lisinopril-hydroCHLOROthi azide 20-25 MG Oral TabletIndications:HTN, goal below 140/90 Take 1 Tablet by mouth in the morning. in the morning.. 90 Tablet 3 3 08/27/19 24 Discontinu ed(Refill) documented as of this encounter (statuses as of 09/07/2023) Active Problems Problem Noted Date Diagnosed Date [...] as of this encounter (statuses as of 09/07/2023) Resolved Problems Problem Noted Date Diagnosed Date Resolved Date Other microscopic colitis 08/09/2017 Counseling regarding advanced directives 11/06/2016 02/23/2019 Actinic keratosis 12/09/2013 08/18/2018 Sciatica 05/04/2013 09/05/2015 Overview: Bulging disk, left sciatica, Dr. Khoury, L4-5 Hypertension goal BP (blood pressure) < 130/80 06/11/2011 05/08/2016 Acute bronchitis, complicated 09/18/2009 12/05/2009 Other chest pain 10/21/2002 02/17/2018 documented as of this encounter (statuses as of 09/07/2023) Immunizations Name Administration Dates Next Due COVID-19 [...] Miscellaneous Notes * Telephone Encounter - Tonya Rae, psychiatric social worker supervisor - 09/07/2023 8:26 AM EDT Received message from [facility] regarding patient needing labs. Call Placed, Pt was agreeable to have labs drawn but would prefer to walk-in at their convenience. Thank you for your assistance Tonya Rae Pulp Bleacher [employer] [facility] ([facility] (Formerly Telepharm[facility]) 09/07/2023,8:26 AM * Telephone Encounter - Coby García [facility] - 08/28/2023 9:25 AM EDTSigned Prescriptions: Disp Refills Lisinopril-hydroCHLOROthiazide 20-25 MG Or*90 Tab*0 Sig: Take 1 Tablet by mouth in the morning. in the morning.. Authorizing Provider: RILEY CANTRELL Ordering User: COBY GARCÍA * Telephone Encounter - Coby García [facility] - 08/28/2023 9:25 AM EDT Provided 90 days supply with 0 refill(s). Per refill protocol patient should have lipid panel and CMP on file within past year. Reviewed AMP report, Care Gaps/Health Maintenance, medications list, and for any routine labs typically ordered for this patient. Lab orders placed. Please contact patient to advise of labs ordered for blood draw. Recommend patient to fast if able for labs. Patient may still have water and regular medications. Advise to obtain labs before requesting the next refill. Thanks, Coby García Clinical Pharmacist [facility] ([facility]) (Formerly Telepharmacy) [phone] 08/28/2023, 9:25 AM * Telephone Encounter - Anitha Conroy CPhT - 08/27/2023 8:22 AM EDT Did you pend patient's preferred pharmacy and medication before forwarding?yes Pharmacy: [facility]- [place] Pending Prescriptions: Disp Refills Lisinopril-hydroCHLOROthiazide 20-25 MG O*90 Tab*3 Sig: Take 1 Tablet by mouth in the morning. in the morning.. Last Visit: 02/18/2023 (in office), Visit date not found (telemedicine) Next Visit: 09/17/2023 If no future appointments scheduled, and last appointment is greater than a year ago, please schedule patient for a follow-up appointment Last date the medication was ordered: 08/10/2022 Is this request for a controlled substance?No Urine Drug Screen:No results found for this or any previous visit. Patient Phone Numbers Labs: Lab Results Component Value Date/Time CREAT 0.9 08/06/2022 08:32 AM CREAT 0.9 01/06/2020 10:19 AM POTASSIUM 4.1 08/06/2022 08:32 AM POTASSIUM 3.9 01/06/2020 10:19 AM TSH 2.95 08/12/2001 09:41 AM LDLCALC 51 08/06/2022 08:32 AM LDLCALC 99 01/06/2020 10:19 AM LDLDIRECT NOT APPLICABLE 01/06/2020 10:19 AM ALT 27 08/06/2022 08:32 AM ALT 20 03/04/2015 08:19 AM documented in this encounter Plan of Treatment Upcoming Encounters Date Type Department Care Team (Late st Contact Info) Description 09/17/2023 3:20 PM EDT Office Visit Family Practice [facility] [place] [address] [place] [place] [address] Riley Cantrell, DO [address] [place] [address] 09/27/2023 10:00 AM EDT Office Visit Dermatology [facility] [place] [address] [place] [address] Murray Mcqueen MD [address] [place] [id number] Scheduled Procedures Name Priority Associated Diagnoses Date/Ti me COLONOSCOPY FLEXIBLE PROXIMAL DIAGNOSTIC Recall History of colon polyps Health Maintenance Due Date Last Done Comments Depression Screening 01/23/2022 01/23/2021 COVID-19 Vaccine ( season) 2023 02/23/2021, 07/23/2020, 07/02/2020 GFR 08/07/2023 08/06/2022, 03/0 08/2021, 07/13/2020, Additional history exists Mammogram 10/27/2023 [...] as of this encounter Visit Diagnoses Diagnosis HTN, goal below 140/90 Unspecified essential hypertension documented in this encounter Care Teams Plant Anatomist Relationship Specialty Start Date End Date Riley Cantrell DO [address] [place] [address] PCP - General Family Medicine 11/06/16 documented as of this encounter
--- OUTSIDE RECORDS SUMMARY | 2023-12-19 04:48 | External Medical Summary | Summary of Care ---
Author Name Unknown Organization [facility] Address [address] [place] [address] Phone [phone] Care Team Providers Care Yacht Master Name Role Phone Kel Dave Ciaran BAXTER Primary Care Provider [phone] Reason for Referral * Precert (Within 10 days (routine)) - Authorized Specialty Diagnoses / Procedures Referred By Contac t Referred To Contact Radiology Diagnoses Pain, joint, knee, left Procedures MRI KNEE LEFT WO CONTRAST James Paul DO [address] [place] [address] Referral ID Status Reason Start Date Expiration Date V isits Requested Visits Authorized [id number] Authorized Precert 11/18/2023 05/16/2024 [id number] Encounter Details Date Type Department Care Team (Late st Contact Info) Description 11/21/2023 Orders Only Radiology, [address] [address] Requisition, External Radiology [address] [place] [address] Pain, joint, knee, left* Allergies Active Allergy Reactions Criticality Noted Date Comments Promethazine Hcl Other (Please comment) Medium 009 Injected vein caused lumps and soreness at an IV site documented as of this encounter (statuses as of 11/21/2023) Medications Medication Sig Dispensed Refills Start Date [...] as of this encounter (statuses as of 11/21/2023) Active Problems Problem Noted Date Diagnosed Date [...] as of this encounter (statuses as of 11/21/2023) Resolved Problems Problem Noted Date Diagnosed Date Resolved Date Other microscopic colitis 08/09/2017 Counseling regarding advanced directives 11/06/2016 02/23/2019 Actinic keratosis 12/09/2013 08/18/2018 Sciatica 05/04/2013 09/05/2015 Overview: Bulging disk, left sciatica, Dr. Khoury, L4-5 Hypertension goal BP (blood pressure) < 130/80 06/11/2011 05/08/2016 Acute bronchitis, complicated 09/18/2009 12/05/2009 Other chest pain 10/21/2002 02/17/2018 documented as of this encounter (statuses as of 11/21/2023) Immunizations Name Administration Dates Next Due COVID-19 [...] Care Team (Late st Contact Info) Description 11/23/2023 8:00 AM EDT Imaging Radiology [address] [facility] [place] [address] 04/01/2024 3:40 PM EST Office Visit Family Practice [facility] [address] [place] [address] Dave Begum, DO [address] [place] [address] Scheduled Orders Name Type Priority Associated Diagnoses Orde r Schedule MRI KNEE LEFT WO CONTRAST Medical Imaging Routine Pain, joint, knee, left Expected: 11/23/2023, Expires: 05/16/2024 Scheduled Procedures Name Priority Associated Diagnoses Date/Ti [...] as of this encounter Visit Diagnoses Diagnosis Pain, joint, knee, left- Primary Pain in joint, lower leg documented in this encounter Care Teams Yacht Master Relationship Specialty Start Date End Date Dave Begum DO [address] [place] [address] PCP - General Family Medicine 11/06/16 documented as of this encounter
--- OUTSIDE RECORDS SUMMARY | 2023-12-19 04:48 | External Medical Summary ---
Author Name Unknown Address Unknown Organization K01:[facility] - [address] [place] [address] Laboratory Report Ordering Provider Test Date Status ÓSCAR LIN 09/10/2023 07:43:33 Final Observation Date Value Abnormality Reference (Units ) Status Triglyceride 09/10/2023 07:43:33 95 <=174 ( mg/dL) Final Triglyceride Reference Range s (mg/dL):
<150 Acceptable
150-174 Borderline high
175-499 High
>=500 Very high Cholesterol 09/10/2023 07:43:33 128 <200 (mg /dL) Final Total Cholesterol Reference Ranges (mg/dL):
<200 Desirable
200-239 Borderline high
>=240 High HDL 09/10/2023 07:43:33 60 >49 (mg/dL ) Final HDL Cholesterol Reference Ra nges (mg/dL):
>=60 High (Desirable)
<50 Low (Undesirable) For Females
<40 Low (Undesirable) For Males NON-HDL CHOLESTEROL 09/10/2023 07:43:33 68 <=159 (mg/dL) Final Non-HDL Cholesterol Referenc e Range (mg/dL):
<100 Target level for high risk ASCVD patient
<130 Optimal for general population
130-159 Near optimal for general population
160-189 Borderline High
190-219 High
>=220 Very High LDL, (calculated) 09/10/2023 07:43:33 49 <= 129 (mg/dL) Final LDL Cholesterol Reference Ra nges (mg/dL):
<70 Target level for high risk ASCVD patient
<100 Optimal for general population
100-129 Near optimal for general population
130-159 Borderline high
160-189 High
>=190 Very high Performing Location [facility] - [address] [facility] [address]
--- OUTSIDE RECORDS SUMMARY | 2023-12-19 04:48 | External Medical Summary | Summary of Care ---
Author Name Unknown Organization [facility] Address [address] [facility] [place] [address] Phone [phone] Care Team Providers Care Supervisor Rod Placing Name Role Phone Dave Begum DO Primary Care Provider [phone] Reason for Visit * Reason Comments Follow Up Encounter Details Date Type Department Care Team (Late st Contact Info) Description 09/17/2023 3:20 PM EDT Office Visit Family Practice [facility] [address] [place] [address] Dave Begum DO [address] [facility] [place] [address] Routine medical exam*; Pure hypercholesterolemia; HTN, goal below 140/90; Essential hypertension with goal blood pressure less than 140/90 Allergies Active Allergy Reactions Criticality Noted Date Comments Promethazine Hcl Other (Please comment) Medium 009 Injected vein caused lumps and soreness at an IV site documented as of this encounter (statuses as of 09/17/2023) Medications Medication Sig Dispensed Refills Start Date [...] the morning.. 90 Tablet 3 4 Active Atorvastatin Calcium 40 MG Oral Tablet (Lipitor)Indications:Pure hypercholesterolemia Take 1 Tablet by mouth in the morning. 90 Tablet 3 3 09/17/19 24 Discontinu ed(Refill) Lisinopril-hydroCHLOROthi azide 20-25 MG Oral TabletIndications:HTN, goal below 140/90 Take 1 Tablet by mouth in the morning. in the morning.. 90 Tablet 0 4 09/17/19 24 Discontinu ed(Refill) documented as of this encounter (statuses as of 09/17/2023) Active Problems Problem Noted Date Diagnosed Date Pure hypercholesterolemia 07/12/2020 Microscopic colitis 02/17/2018 Essential hypertension with goal blood pressure less than 140/90 05/08/2016 History of sciatica 05/04/2013 History of basal cell carcinoma 12/08/2012 FAM HX-AAA 06/13/2008 Overview: Normal US, repeat 3-5 yrs, [facility] history of AAA, COMMON MIGRAINE WITHOUT MENTION OF INTRACTABLE M IGRAINE Family history of melanoma Overview: sister age 20 documented as of this encounter (statuses as of 09/17/2023) Resolved Problems Problem Noted Date Diagnosed Date Resolved Date Other microscopic colitis 08/09/2017 Counseling regarding advanced directives 11/06/2016 02/23/2019 Actinic keratosis 12/09/2013 08/18/2018 Sciatica 05/04/2013 09/05/2015 Overview: Bulging disk, left sciatica, Dr. Khoury, L4-5 Hypertension goal BP (blood pressure) < 130/80 06/11/2011 05/08/2016 Acute bronchitis, complicated 09/18/2009 12/05/2009 Other chest pain 10/21/2002 02/17/2018 documented as of this encounter (statuses as of 09/17/2023) Immunizations Name Administration Dates Next Due COVID-19 [...] on file documented as of this encounter Last Filed Vital Signs Vital Sign Reading Time Taken Comments Blood Pressure 132/76 09/17/2023 3:09 PM EDT Pulse 70 09/17/2023 3:09 PM EDT Temperature 36.9 C (98.4 F) 09/17/2023 3:09 PM ED T Respiratory Rate 18 09/17/2023 3:09 PM EDT Oxygen Saturation 99% 09/17/2023 3:09 PM EDT Inhaled Oxygen Concentration - - Weight 84.6 kg (186 lb 9.6 oz) 09/17/2023 3:09 P M EDT Height 175.3 cm (5' 9") 09/17/2023 3:09 PM EDT Body Mass Index 27.56 09/17/2023 3:09 PM EDT documented in this encounter Progress Notes * Dave Begum, DO - 09/17/2023 3:37 PM EDT Subjective: Thao Murray is a 73 year old female. Chief Complaint Patient presents with Follow Up HPI: Pt here for a physical. BAck discussed - sees chiropractor and uses Tylenol as needed. PMHx, PSHx, SHx, FHx, Medications, and Allergies fully reviewed Getting out exercising. Getting out walking with her daughter. Weoight coming off. Planning on active spring and summer. Diet discussed. Doing more salads. More water. Son is home and now his daughter is too. Patient Active Problem List Diagnosis Code COMMON MIGRAINE WITHOUT MENTION OF INTRACTABLE MIGRAINE G43.009 FAM HX-AAA Z82.79 History of basal cell carcinoma Z85.828 Family history of melanoma Z80.8 History of sciatica Z86.69 Essential hypertension with goal blood pressure less than 140/90 I10 Microscopic colitis K52.839 Pure hypercholesterolemia E78.00 Current Outpatient Medications Medication Sig Dispense Refill CENTRUM SILVER PO TABS daily CALCIUM + D 250-125 MG-UNIT PO TABS daily Triamcinolone Acetonide 0.1 % External Cream (Aristocort) Apply topically to affected area 2 times a day. Apply to bites as needed 80 g 1 Atorvastatin Calcium 40 MG Oral Tablet (Lipitor) Take 1 Tablet by mouth in the morning. 90 Tablet 3 Baclofen 10 MG Oral Tablet (Lioresal) Take 1 Tablet by mouth 2 times a day as needed for Pain. 20 Tablet 0 Fluorouracil 5 % External Cream (Efudex) Apply to rough areas right cheek and nose twice daily for 3 weeks 40 g 0 Lisinopril-hydroCHLOROthiazide 20-25 MG Oral Tablet Take 1 Tablet by mouth in the morning. in the morning.. 90 Tablet 0 No current facility-administered medications for this visit. Review of patient's allergies indicates: Allergen Reactions Promethazine Hcl Other (Please comment) Injected vein caused lumps and soreness at an IV site OBJECTIVE: BP 132/90 | Pulse 70 | Temp 36.9 C (98.4 F) (Tympanic) | Resp 18 | Ht 1.753 m (5' 9") | Wt 84.6kg (186 lb 9.6 oz) | SpO2 99% | BMI 27.56 kg/m | BSA 2.03 m Estimated body mass index is 27.56 kg/m as calculated from the following: Height as of this encounter: 1.753 m (5' 9"). Weight as of this encounter: 84.6 kg (186 lb 9.6 oz). BP Readings from Last 3 Encounters: 09/17/23 132/90 02/18/23 119/72 08/31/22 140/80 Wt Readings from Last 3 Encounters: 09/17/23 84.6 kg (186 lb 9.6 oz) 02/18/23 85.4 kg (188 lb 3.2 oz) 08/31/22 87.5 kg (193 lb) ROS: General: No change in weight, No weakness, No fatigue and No fevers, sweats, or chills Head: No significant headache and No recent significant head injury Eyes: No recent significant change in vision, No eye pain, redness, discharge, or excessive tearing, No diplopia and No h/o cataracts or glaucoma Ears: No recent change in hearing, No tinnitus or vertigo, No ear pain and No ear discharge Nose: No h/o frequent colds or sinusitis, No nasal stuffiness, No h/o hay fever and No significant epistaxis Throat/Oropharynx: No teeth or gum problems, No bleeding gums, No tongue complaints, No sore throatand No recent change in voice or hoarseness Neck: No complaint of lumps in neck, No swollen glands, No recent swelling in thyroid area and No significant pain in neck Breast: No new breast lumps, No severe breast pain, No nipple discharge, No recent change in shape/contor and Patient does perform monthly self breast exam Respiratory: No cough, sputum, or hemoptysis, No wheezing, No shortness of breath and No recent change in breathing Cardiac: No chest pain, No shortness of breath, No dyspnea on exertion, No orthopnea, No paroxysmalnocturnal dyspnea, No edema, No palpitations and No syncope Gastrointestinal: No dysphagia, No significant heartburn, No significant change in appetite, No nausea, vomiting, diarrhea, or constipation, No hematemesis, No blood in stools or black tarry stools, No abdominal bloating or early satiety and No abdominal pain Urinary: No urinary frequency, No dysuria, No hematuria, No urinary urgency, No polyuria, No nocturia, No incontinence, No hesitancy and No sensation of incomplete voiding Musculoskeletal: chronic aches and pains. Hematologic: No anemia, No easy bruising or abnormal bleeding and No history of transfusion Neurologic: No fainting or blackouts, No seizures, No paralysis or focal weakness, No numbness or tingling, No tremors and No significant problems with memory PHYSICAL EXAM: General: alert, healthy and no distress Head: Normocephalic, No masses, lesions, tenderness or abnormalities Ears: External ears normal, Canals clear, TM's Normal Nose: no mucosal erythema, no mucosal edema, no purulent discharge Oropharynx: no exudate, no erythema, lips, buccal mucosa, and tongue normal and mucous membranes are moist Neck: supple, no adenopathy, no bruits, thyroid normal size, non-tender, without nodularity Heart: regular rate & rhythm, no murmurs and no gallops Lungs: chest symmetric with normal AP diameter, no chest deformities noted, no chest wall tenderness, lungs clear to auscultation Abdomen: abdomen soft, non-tender, normal bowel sounds and no masses or organomegaly Extremities: less than 2 second capillary refill, no joint deformities, effusion, or inflammation ASSESSMENT/Plan Routine medical exam (Primary) Pure hypercholesterolemia - Atorvastatin Calcium 40 MG Oral Tablet (Lipitor); Take 1 Tablet by mouth in the morning. HTN, goal below 140/90 - Lisinopril-hydroCHLOROthiazide 20-25 MG Oral Tablet; Take 1 Tablet by mouth in the morning. in the morning.. Essential hypertension with goal blood pressure less than 140/90 I spent a total of 30 minutes on the date of service in preparation, delivery, and documentation ofthe care provided to this patient, excluding any time spent on the performance of any procedure or separately billable services. Dental and sun care discussed along with weight. Overall doing well. The above was discussed and understanding was expressed. Dave Begum DO documented in this encounter Nursing Notes * Miranda Hernandez LPN - 09/17/2023 3:09 PM EDT Thao Baptiste Trevor presents for 6 month recheck. Medications & HM reviewed. documented in this encounter Plan of Treatment Upcoming Encounters Date Type Department Care Team (Late st Contact Info) Description 09/27/2023 10:00 AM EDT Office Visit Dermatology [facility] [address] [facility] [place] [address] Murray Mcqueen MD [address] [place] [address] 04/01/2024 3:40 PM EST Office Visit Family Practice [facility] [address] [facility] [place] [address] Dave Begum DO [address] [facility] [place] [address] Scheduled Procedures Name Priority Associated Diagnoses Date/Ti me COLONOSCOPY FLEXIBLE PROXIMAL DIAGNOSTIC Recall History of colon polyps Health Maintenance Due Date Last Done Comments COVID-19 Vaccine ( season) 2023 02/23/2021, 07/23/2020, 07/02/2020 Mammogram 10/27/2023 10/26/2022, 09/26, 10/20/2020, Additional history exists GFR 09/09/2024 09/10/2023, 07/25, 07/28/2021, Additional history exists Depression Screening 09/16/2024 09/17/2023 COLONOSCOPY-EVERY 3 YRS AGES 18-100 06/21/2025 06/21/2022, [...] as of this encounter Visit Diagnoses Diagnosis Routine medical exam- Primary Routine general medical examination at a health care facility Pure hypercholesterolemia HTN, goal below 140/90 Unspecified essential hypertension Essential hypertension with goal blood pressure less than 140/90 documented in this encounter Care Teams Supervisor Rod Placing Relationship Specialty Start Date End Date Dave Begum DO [address] [place] [address] PCP - General Family Medicine 11/06/16 documented as of this encounter
--- OUTSIDE RECORDS SUMMARY | 2023-12-19 04:48 | External Medical Summary ---
Author Name Unknown Address Unknown Organization K09:[facility] [address] [place] [address] Laboratory Report Ordering Provider Test Date Status ÓSCAR LIN 09/10/2023 07:43:33 Final Observation Date Value Abnormality Reference (Units ) Status BUN 09/10/2023 07:43:33 15 6-20 (mg/dL) Final Creatinine 09/10/2023 07:43:33 0.9 0.5-1.0 (mg/dL) Final Glomerular filtration rate/1.73 sq M.predicted [Volume Rate/Area] in Serum, Plasma or Blood by Creatinine-based formula (CKD-EPI) 09/10/2023 07:43:33 67 >=60 (mL/min) Final eGFR is calculated based on the CKD-EPI 2020 equation Sodium 09/10/2023 07:43:33 142 135-146 (m mol/L) Final Potassium 09/10/2023 07:43:33 3.9 3.5-5.1 (m mol/L) Final Cl 09/10/2023 07:43:33 103 98-107 (mm ol/L) Final CO2 09/10/2023 07:43:33 29 22-32 (mmo l/L) Final Anion gap 09/10/2023 07:43:33 10 7-15 (mmol /L) Final Glucose 09/10/2023 07:43:33 94 70-120 (mg /dL) Final Albumin 09/10/2023 07:43:33 4.4 3.8-5.0 (g /dL) Final AST (Aspartate aminotransferase) 09/10/2023 07:43:33 27 10-35 (U/L) Fin al Alk Phos 09/10/2023 07:43:33 93 35-130 (U/ L) Final Bilirubin, Total 09/10/2023 07:43:33 1.3 Above high no rmal <=1.2 (mg/dL) Final Calcium 09/10/2023 07:43:33 9.6 8.4-10.2 ( mg/dL) Final Protein 09/10/2023 07:43:33 6.6 6.0-8.3 (g /dL) Final ALT (Alanine aminotransferase) 09/10/2023 07:43:33 22 10-35 (U/L) Israel motley Performing Location [facility] [address] [place] [address]
--- OUTSIDE RECORDS SUMMARY | 2023-12-19 04:48 | External Medical Summary | Summary of Care ---
Author Name Unknown Organization [facility] Address [address] [place] [address] Phone [phone] Care Team Providers Care Senior Mechanical Project Manager Name Role Phone AdamsDave montalvo Ciaran BAXTER Primary Care Provider [phone] Reason for Visit * Reason Comments Follow Up Skin check- no acute concerns at this time Encounter Details Date Type Department Care Team (Late st Contact Info) Description 09/27/2023 10:00 AM EDT Office Visit Dermatology [facility] [address] [place] [address] Murray Mcqueen MD [address] [place] [id number] Caterpillar dermatitis*; Hx of squamous cell carcinoma; Hx of basal cell carcinoma Allergies Active Allergy Reactions Criticality Noted Date Comments Promethazine Hcl Other (Please comment) Medium 009 Injected vein caused lumps and soreness at an IV site documented as of this encounter (statuses as of 09/27/2023) Medications Medication Sig Dispensed Refills Start Date [...] as of this encounter (statuses as of 09/27/2023) Active Problems Problem Noted Date Diagnosed Date [...] as of this encounter (statuses as of 09/27/2023) Resolved Problems Problem Noted Date Diagnosed Date Resolved Date Other microscopic colitis 08/09/2017 Counseling regarding advanced directives 11/06/2016 02/23/2019 Actinic keratosis 12/09/2013 08/18/2018 Sciatica 05/04/2013 09/05/2015 Overview: Bulging disk, left sciatica, Dr. Khoury, L4-5 Hypertension goal BP (blood pressure) < 130/80 06/11/2011 05/08/2016 Acute bronchitis, complicated 09/18/2009 12/05/2009 Other chest pain 10/21/2002 02/17/2018 documented as of this encounter (statuses as of 09/27/2023) Immunizations Name Administration Dates Next Due COVID-19 [...] on file documented as of this encounter Progress Notes * Murray Mcqueen MD - 09/27/2023 9:49 AM EDT Roddy Murray is a 73 year old female here for follow up. History of basal cell carcinoma andsquamous cell carcinoma in situ. At last visit recommended 5 fluorouracil for some actinic keratoses and she had a blk I biopsied on her chest as well as the surface of a melanocytic lesion on the cheek that I favored was a recurrent nevus after review of a prior nevus sampled in this same area previously. These spots did well. Today she does have an itchy rash on her neck and arms from caterpillars she's used some triamcinolone on but is still very itchy. Other skin problems today: no Current Outpatient Medications Medication Sig Dispense Refill CENTRUM SILVER PO TABS daily CALCIUM + D 250-125 MG-UNIT PO TABS daily Triamcinolone Acetonide 0.1 % External Cream (Aristocort) Apply topically to affected area 2 times a day. Apply to bites as needed 80 g 1 Baclofen 10 MG Oral Tablet (Lioresal) Take 1 Tablet by mouth 2 times a day as needed for Pain. 20 Tablet 0 Fluorouracil 5 % External Cream (Efudex) Apply to rough areas right cheek and nose twice daily for 3 weeks 40 g 0 Atorvastatin Calcium 40 MG Oral Tablet (Lipitor) Take 1 Tablet by mouth in the morning. 90 Tablet 3 Lisinopril-hydroCHLOROthiazide 20-25 MG Oral Tablet Take 1 Tablet by mouth in the morning. in the morning.. 90 Tablet 3 No current facility-administered medications for this visit. O. Well-developed female type 2 skin, no acute distress, alert and oriented Full body examined and normal except few areas of postinflammatory pigment alteration on cheeks butno discrete lesions, urticarial papules neck and arms Assessment: / Plan: 1. Caterpillar dermatitis Clobetasol cr twice daily x 1-2 weeks 2. History of actinic keratosis, basal cell carcinoma, squamous cell carcinoma No suspicious lesions noted on exam today Actinic keratoses resolved Daily sunscreen Follow up: Yearly or sooner prn new/changing skin lesion Murray Mcqueen MD 09/27/2023 9:50 AM documented in this encounter Nursing Notes * Odette Daniels LPN - 09/27/2023 10:00 AM EDT Patient identified by name and date of . Do you have any concerns about pain management for today's visit? No Living Will or Advance Directive for Health Care as noted on problem list. [facility] is a way you can talk to your provider online through e-mail. Would you like to sign up? I can activate it for you? NO Chief Complaint Patient presents with Follow Up Skin check- no acute concerns at this time documented in this encounter Plan of Treatment Upcoming Encounters Date Type Department Care Team (Late st Contact Info) Description 04/01/2024 3:40 PM EST Office Visit Family Practice [facility] [place] [address] [facility] [place] [address] Dave Begum, DO [address] [facility] [place] [id number] Scheduled Procedures Name Priority Associated Diagnoses Date/Ti [...] 03/13/2016, 03/03/2015, 08/07/2004 Zoster Vaccines Completed 11/09/2020, 0405/2020, 12/11/2016 RETIRED - COLONOSCOPY-EVERY 5 YRS AGES [...] as of this encounter Visit Diagnoses Diagnosis Caterpillar dermatitis- Primary Hx of squamous cell carcinoma Personal history of malignant neoplasm of other site Hx of basal cell carcinoma Personal history of other malignant neoplasm of skin documented in this encounter Care Teams Senior Mechanical Project Manager Relationship Specialty Start Date End Date Dave Begum DO [address] [place] [address] PCP - General Family Medicine 11/06/16 documented as of this encounter
[2023-12-19 06:33] LABS: Hematocrit (blood only) 41.2 % (37.0-47.0); Mean Corpuscular Hemoglobin 31.1 pg (25.0-34.0); Mean Corpuscular Volume 91.6 fL (80.0-100.0); Mean Platelet Volume 11.2 fL (9.4-12.4); Platelet Count 269 K/uL (130-400); RDW Coefficient of Variation 15.2 % (11.5-14.5); RDW Standard Deviation 50.7 fL (36.4-46.3); White Blood Count 9.52 K/ul (4.8-10.8)
[2023-12-19 06:35] LABS: BUN Creatinine Ratio 17.1 (10-20); Calcium 8.7 mg/dl (8.6-10.3); Est GFR (African American) 89.6 ml/min; Est GFR (Non-African American) 77.3 ml/min; Magnesium 1.9 mg/dl (1.7-2.4)
[2023-12-19] MEDS: STAT IV Infusion **Titration per Protocol STA (07:00)
--- NOTE | 2023-12-19 08:27 | Electrocardiogram Report ---
Test Reason : Blood Pressure : / mmHG Vent. Rate : 056 BPM Atrial Rate : 056 BPM P-R Int : 148 ms QRS Dur : 140 ms QT Int : 474 ms P-R-T Axes : 053 018 002 degrees QTc Int : 457 ms Sinus bradycardia with sinus arrhythmia Right bundle branch block Abnormal ECG When compared with ECG of 18-DEC-2023 17:51, T wave inversion no longer evident in Anteroseptal leads Confirmed by Deon Momin ([id number]) on 12/19/2023 8:26:36 AM Referred By: James Paul Confirmed By:Deon Momin
[2023-12-19] MEDS: METOPROLOL TARTRATE 25 MG TAB PO SCH (08:37)
[2023-12-19] MEDS: MULTIVITAMIN TAB PO SCH (08:37)
[2023-12-19] MEDS: ATORVASTATIN 40 MG TAB PO SCH (08:37)
[2023-12-19] MEDS: LISINOPRIL/HCTZ 20/25MG 1 TAB PO SCH (08:37)
[2023-12-19] MEDS: ACETAMINOPHEN 325 MG TAB PO PRN (08:38)
--- NOTE | 2023-12-19 08:50 | Electrocardiogram Report ---
Test Reason : Blood Pressure : / mmHG Vent. Rate : 072 BPM Atrial Rate : 072 BPM P-R Int : 160 ms QRS Dur : 132 ms QT Int : 426 ms P-R-T Axes : 042 -64 000 degrees QTc Int : 466 ms Normal sinus rhythm Left anterior fascicular block Right bundle branch block Abnormal ECG When compared with ECG of 18-DEC-2023 15:53, Sinus rhythm has replaced Atrial fibrillation Vent. rate has decreased BY [address] no longer depressed in Anterior leads Confirmed by Deon Momin ([id number]) on 12/19/2023 8:50:12 AM Referred By: James Paul Confirmed By:Deon Momin
--- NOTE | 2023-12-19 09:37 | Communication Note ---
Date of Service: December 19, 2023 Mrs. Murray is a 73-year-old female who was admitted last evening for atrial fibrillation status post left knee arthroscopy performed by Dr. Paul on 724 at [facility]. She was transferred from our surgery center to [facility]. She underwent a successful left knee arthroscopy. From an orthopedic standpoint, it would be safe for her to initiate anticoagulation at this time. She can be weight-bear as tolerated on her left lower leg. She can take down her dressing tomorrow morning and place bandaids over portal sites. She will follow-up in our office in 10 to 12 days or sooner if she is having any issues.
--- NOTE | 2023-12-19 11:36 | Electrocardiogram Report ---
Test Reason : Blood Pressure : / mmHG Vent. Rate : 069 BPM Atrial Rate : 069 BPM P-R Int : 156 ms QRS Dur : 132 ms QT Int : 424 ms P-R-T Axes : 044 -59 -05 degrees QTc Int : 454 ms Normal sinus rhythm Left anterior fascicular block Right bundle branch block Abnormal ECG When compared with ECG of 18-DEC-2023 16:55, No significant change was found Confirmed by Deon Momin ([id number]) on 12/19/2023 11:36:48 AM Referred By: James Paul Confirmed By:Deon Momin
--- NOTE | 2023-12-19 11:39 | Cardiology Consultation ---
Date of Consultation December 19, 2023 Assessment & Plan (1) Atrial fibrillation with rapid ventricular response: (2) Hypokalemia: (3) Hypertension: (4) Elevated troponin I level: Plan 12/18/23: Patient admitted to [facility] after developing afib RVR in the post op setting following menisus repair at outpatient surgery center. Converted to NSR in the ER with IV diltiazem. Started on low dose metoprolol 12.5 mg BID. Currently NSR/sinus bradycardia. Long discussion with patient and family today regarding atrial fibrillation and treatment options. No known history of afib. [id number] score of 3 (Sex, age, HTN). Soon to be 4 (when she turns 74). Anticoagulation therapy is recommended. She was not started on anticoagulation due to knee surgery and awaiting orthopedic evaluation. She was mildly hypokalemia upon arrival. Takes lisinopril/hctz as outpatient for HTN. Likely will benefit from low dose supplement as outpatient. Minimally elevated troponin noted, peaking at 57. Echo results pending No acute ischemic EKG changes. No anginal symptoms Elevated troponin likely due to afib RVR, demand ischemic event. Consider outpatient stress test in the future. Continue statin, metoprolol. Likely to start Eliquis. Further recommendations pending discussion/evaluation with Dr. Moreno Case discussed with Dr. Moreno I spent a total of 55 minutes on the date of service in preparation, delivery, and documentation of the care provided to this patient, excluding any time spent in the performance of separately billed services. Marleni Smith PA-C Department of Cardiology, [facility] This chart was completed in part utilizing Speech Voice Recognition Software. Grammatical errors, random word insertions, pronoun errors, and incomplete sentences are an occasional consequence of this system due to software limitations, ambient noise, and hardware issues. Any formal questions or concerns about the content, text, or information contained within the body of this dictation should be directly addressed to the provider for clarification. Supervising Physician Co-Signing Physician Notes Attending attestation. I have personally performed a history and physical examination on the patient. I have reviewed the advance practitioner's documentation, and I agree with, and take responsibility for the plan of care. 73-year-old female transferred from surgical center after orthopedic knee surgery due to rapid atrial fibrillation. Asymptomatic with atrial fibrillation. Denies any prior palpitations. Due to lack of symptoms, unknown whether patient has experienced prior episodes of atrial fibrillation. Echocardiogram demonstrating preserved LV function with mild concentric left ventricular hypertrophy. Mild tricuspid and trace mitral regurgitation noted. Elevated [id number] score due to age and hypertension. Patient agreeable to oral anticoagulation with Eliquis and low-dose beta-nuria therapy. No further inpatient cardiac testing or intervention recommended at this time. Will likely pursue stress testing for further risk stratification when she has recovered from the surgery. Outpatient cardiology follow-up in 2 to 4 weeks. Thank you for allowing us to participate in the care of your patient. I spent a total of 30 minutes on the date of service in preparation, delivery, and documentation of the care provided to this patient, excluding any time spent in the performance of separately billed services. James Moreno DO, [facility] History of Present Illness Reason for Consultation: Afib RVR Requesting Physician: Pancho Burroughs Attending Physician: Dr. Moreno History of Present Illness Patient is a 73 year old female who underwent outpatient orthopedic knee surgery yesterday at outpatient center. Immediately following surgery, in the recovery area, patient developed afib RVR in the 130-150 range. She was transferred to the [place] ER for evaluation and treatment. Upon arrival, she was given several doses of IV diltiazem and converted to NSR. Per notes, she was not started on anticoagulation due to recent knee surgery. They were awaiting orthopedic evaluation. Potassium was low on arrival and this was supplemented. She was started on low dose metoprolol tartrate 12.5 mg BID. Troponin also minimally elevated ranging 19-peaking at 57 and trending down to 44 this morning. Admitted for further evaluation. At time of consult patient feeling well. Ambulating in room without issue. knee pain controlled. She reports feeling "anxious" at time of afib, with mild palpitations but denied chest pain or dyspnea yesterday. NO recurrent symptoms overnight or this morning. No known history of afib or cardiovascular issues. History of hypertension and dyslipidemia. Chronic RBBB Allergies Allergy/AdvReac Type Severity Reaction Status Date / Time promethazine Allergy Intermediate HIVES Verified 12/18/23 16:41 Home Medications Medication Instructions Recorded Confirmed Type atorvastatin 40 mg tablet 40 mg PO DAILY 03/19/23 12/18/23 History lisinopril 20 1 tab PO DAILY 03/19/23 12/18/23 History mg-hydrochlorothiazide 25 mg tablet multivitamin 1 tab PO DAILY 12/18/23 12/18/23 History Patient History Medical History (Updated 12/19/23 @ 12:00 by Marleni Smith PA-C) Elevated troponin I level Uterine leiomyoma Surgical History (Updated 12/18/23 @ 20:04 by Hannah Henderson PA-C) H/O tubal ligation History of left oophorectomy History of cholecystectomy Family History Aunt Breast cancer Grandfather (Maternal) Diabetes Grandmother (Maternal) Diabetes Mother Diabetes Denies family history of Ovarian cancer Colorectal cancer Social History Smoking Status: Never smoker Do You Dip or Chew Tobacco: No; Hx Alcohol Use: No Hx Substance Use: No Preferred Language: Persian Communication Ability: Effective 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 Beliefs That Will Affect Care: None Current Living Situation: Spouse Other Information That Helps Us Care for You: No Feels Safe at Home: Yes Safety Concerns: Feels Safe At This Time Assistive Devices: Cane, Crutches and Walker Review of Systems Review of Systems: All systems reviewed & are unremarkable except as noted in HPI & below Physical Exam Constitutional: WD/WN, vitals as above well developed; no acute distress Neck: normal visual inspection Respiratory: normal respiratory effort Auscultation: lungs clear to auscultation bilaterally Cardiovascular: Rate/Rhythm: regular rate and regular rhythm Heart Sounds: normal S1 and normal S2; no murmur Vessels: no JVD Extremities: no edema (left knee wrapped) Gastrointestinal (Abdomen): normal bowel sounds, soft, nontender, no hepatosplenomegaly Skin: no rashes, warm and dry Neurologic: PERRL, EOMI, accommodation nl, no face palsy, no dysarthria Psychiatric: A+Ox3, euthymic affect Results & Data Vital Signs (Past 12 Hours) Vital Signs Temp Pulse Pulse Resp BP Pulse Ox O2 Del Method 12/19/23 10:36 36.7 C 51 L 19 168/81 H 97 Room Air 12/19/23 07:59 36.7 C 77 20 122/72 97 Room Air 12/19/23 07:03 54 L 12/19/23 02:56 36.6 C 52 L 17 96/56 L 97 Room Air Laboratory Results Cardiac Enzymes 12/18/23 12/18/23 12/19/23 Range/Units 16:00 17:50 00:15 AST 26 (13-39) U/L Troponin I High Sens 8.2 19.9 H D 57.7 H* D (0-14) pg/ml 12/19/23 Range/Units 05:51 AST (13-39) U/L Troponin I High Sens 44.8 H D (0-14) pg/ml CBC 12/18/23 12/19/23 Range/Units 16:00 05:51 WBC 6.44 9.52 (4.8-10.8) K/ul RBC 5.35 4.50 (4.20-5.40) M/uL Hgb 16.5 H 14.0 (12.0-16.0) g/dl Hct 49.0 H 41.2 (37.0-47.0) % Plt Count 292 269 (130-400) K/uL Neut # (Auto) 5.44 (1.40-6.50) K/uL Lymph # (Auto) 0.68 L (1.20-3.40) K/uL [place] # (Auto) 0.15 (0.11-0.59) K/uL Eos # (Auto) 0.11 (0.00-0.50) K/uL Baso # (Auto) 0.04 (0.00-0.20) K/uL Comprehensive Metabolic Panel 12/18/23 12/19/23 Range/Units 16:00 05:51 Sodium 141 142 (136-145) mmol/L Potassium 3.4 L 4.0 (3.5-5.1) mmol/L Chloride 106 110 H (98-107) mmol/L Carbon Dioxide 26 26 (21-32) mmol/L BUN 10 13 (6-23) mg/dl Creatinine 0.84 0.76 (0.6-1.2) mg/dl Glucose 124 H 112 H (70-99(Fasting)) mg/dl Calcium 9.5 8.7 (8.6-10.3) mg/dl AST 26 (13-39) U/L ALT 20 (7-52) U/L Alkaline Phosphatase 87 (34-104) U/L Total Protein 7.1 (6.0-8.3) gm/dl Albumin 4.2 (3.4-5.0) gm/dl Intake and Output 12/18/23 12/19/23 12/19/23 22:59 06:59 14:59 Intake Total 1150.667 / 1150.667 0 / 1150.667 Balance 1150.667 / 1150.667 0 / 1150.667 Intake: IV 1000.667 / 1000.667 0 / 1000.667 Sodium Chloride 0.9% 1,000 ml @ 1000 / 1000 999 mls/hr IV .Q1H1M ONE Rx#: [id number] dilTIAZem HCL 125 mg In 0.667 / 0.667 0 / 0.667 Dextrose 5% 100 ml @ 0 MG/HR IV .Q0M [facility] Rx#:[id number] Oral 150 / 150 Other: Other Intake Source NPO # Unmeasured Voids 1 1 Weight 84.5 kg 84.5 kg Weight Measurement Method Standing Scale Built in [facility] Diagnostic Findings Telemetry reviewed: NSR/Sinus bradycardia ranging 55-65 bmp overnight and this morning. No recurrent afib since ER yesterday afternoon. Echocardiogram results pending EKG reviewed from this morning: Sinus bradycardia at 56 bmp, RBBB. no significant change from previous EKG on arrival yesterday: Afib with RVR at 135 bmp RBBB Chest X-Ray 12/18/23 15:55 XR chest 1V portable CLINICAL HISTORY: Chest pain, nonspecific TECHNIQUE: Single frontal radiograph of the chest was obtained. Comparison: None available at the time of this dictation. FINDINGS: No lines and tubes are seen. The cardiomediastinal silhouette is normal. The lungs are clear. No evidence of pleural effusion or pneumothorax. IMPRESSION: No acute chest disease. Medications Administered Current Inpatient Medications Acetaminophen (Acetaminophen 325 Mg Tab) 650 mg PO Q4H PRN PRN Reason: Pain or Fever Stop: 01/17/24 21:33 Last Admin: 12/19/23 08:38 Dose: 650 mg Atorvastatin Calcium (Atorvastatin 40 Mg Tab) 40 mg PO DAILY SHABNAM Stop: 01/18/24 08:59 Last Admin: 07/25/24 08:37 Dose: 40 mg Lisinopril/HCTZ (Lisinopril/Hctz 20/25mg 1 Tab) 1 tab PO DAILY [facility] Stop: 01/18/24 08:59 Last Admin: 12/19/23 08:37 Dose: 1 tab Metoprolol Tartrate (Metoprolol Tartrate 25 Mg Tab) 12.5 mg PO BID [facility] Stop: 01/18/24 08:59 Last Admin: 12/19/23 08:37 Dose: 12.5 mg Multivitamins (Multivitamin Tab) 1 tab PO QAM [facility] Stop: 01/18/24 08:59 Last Admin: 12/19/23 08:37 Dose: 1 tab Ondansetron HCl (Ondansetron Inj 2 Mg/Ml 2 Ml Vial) 4 mg IV Q6H PRN PRN Reason: Nausea Stop: 01/17/24 21:33 Polyethylene Glycol (Polyethylene (Miralax) 17 Gm Pack) 17 gm PO DAILY PRN PRN Reason: Constipation Stop: 01/17/24 21:33
[2023-12-19] MEDS: APIXABAN 5 MG TABLET PO SCH (13:08)
--- NOTE | 2023-12-19 14:11 | Hospitalist Progress Note ---
Date of Service December 19, 2023 Assessment & Plan (1) Atrial fibrillation with rapid ventricular response: (2) RBBB: (3) S/P arthroscopic knee surgery: Plan Patient is a 73-year-old female with past medical history of hyperlipidemia, hypertension who was sent to the ED for atrial fibrillation with RVR. Patient had left knee arthroscopy on 12/18/23 at outside facility for partially torn meniscus. During the procedure; patient went into atrial fibrillation with rapid ventricular rate. Patient denies chest pain, palpitation or shortness of breath. Patient was given Cardizem in ED; converted to normal sinus rhythm. Atrial fibrillation with RVR, converted to sinus rhythm EKG on admission personally reviewed; atrial fibrillation with RBBB. Ventricular rate of 135 Repeat EKG shows normal sinus rhythm with right bundle branch block Last echocardiogram in April 2017; EF of 60 to 64%; mild focal thickening of the anterior mitral valve leaflet without prolapse. Left ventricular cavity size normal. Repeat echo noting EF 60-65%, mild LVH, trace MR, mild tricuspid regurg TSH wnl Cardiology consulted, appreciate recs. Recommended/stated the following: -"Elevated [id number] score due to age and hypertension. -Patient agreeable to oral anticoagulation with Eliquis and low-dose beta- nuria therapy. -No further inpatient cardiac testing or intervention recommended at this time. -Will likely pursue stress testing for further risk stratification when she has recovered from the surgery. -Outpatient cardiology follow-up in 2 to 4 weeks." Orthopedics also consulted for anticoagulation recs in the setting of recent surgery (concern for heamtoma formation). recommended/advised the following: -From an orthopedic standpoint, it would be safe for her to initiate anticoagulation at this time. Pt started on Eliquis 5mg BID with metoprolol succ 12.5mg daily Continue to monitor on telemetry Elevated high sensitive troponin in setting of atrial fibrillation Demand Ischemia Troponin elevated on admission, with peak Repeat echo noting EF 60-65%, mild LVH, trace MR, mild tricuspid regurg Likely demand in setting of above Cardiology on board as noted above Hypokalemia replete with supplement s/p left knee arthroscopy Hx of left knee meniscal tear Pt with left knee meniscal tear s/p left knee arthroscopy on 12/18/23 at [facility] Orthopedics consulted, recommended/stated the following: -"...status post left knee arthroscopy performed by Dr. Paul on at [facility]. She was transferred from our surgery center to [facility]. -She underwent a successful left knee arthroscopy. -From an orthopedic standpoint, it would be safe for her to initiate anticoagulation at this time. -She can be weight-bear as tolerated on her left lower leg. -She can take down her dressing tomorrow morning and place bandaids over portal sites. -She will follow-up in our office in 10 to 12 days or sooner if she is having any issues." Close orthopedic followup after discharge Hypertension continue on lisinopril/hydrochlorothiazide Hyperlipidemia continue on Lipitor 40 mg once a day Hyperglycemia AM hgba1c Diet: HH DVT prophylaxis: on Eliquis Dispo: Home once medically stable Admission and Anticipated Discharge Date Admission Date: December 18, 2023 Subjective Pt seen multiple times during the day. In the AM, denied chest pain, SOB, palpitations. States she has never felt her symptoms. Later in the evening, discussion with pt about plan and next steps. Notified that she has been having HR into the 40s while up and walking States that she did not sleep well overnight, concerned about her HR and the new medications she is on. Concerned about followups and having them scheduled. Concerned that her dinner was not delivered/missed. States that she will agree to a plan for a safe discharge. Agreeable to staying overnight and being monitored further on telemetry. Agreeable to plan in the AM. Review of Systems Review of Systems: All systems reviewed & are unremarkable except as noted in Subjective Physical Exam Physical Exam: General: Alert, oriented. No acute distress Psych: Appropriate mood and affect Neuro: No gross deficits HEENT: NC/AT CV: RRR, Normal s1, s2. No murmurs appreciated Resp: Breath sounds clear bilaterally, no increased effort of breathing. Abdomen: Soft, nontender, nondistended. Extremities: R knee and leg bandaged Results & Data Results & Data Vital Signs (Past 12 Hours) Vital Signs Temp Pulse Pulse Resp BP Pulse Ox O2 Del Method 12/19/23 10:36 36.7 C 51 L 19 168/81 H 97 Room Air 12/19/23 07:59 36.7 C 77 20 122/72 97 Room Air 12/19/23 07:03 54 L 12/19/23 02:56 36.6 C 52 L 17 96/56 L 97 Room Air Diagnostic Findings Chest X-Ray 12/18/23 15:55 XR chest 1V portable CLINICAL HISTORY: Chest pain, nonspecific TECHNIQUE: Single frontal radiograph of the chest was obtained. Comparison: None available at the time of this dictation. FINDINGS: No lines and tubes are seen. The cardiomediastinal silhouette is normal. The lungs are clear. No evidence of pleural effusion or pneumothorax. IMPRESSION: No acute chest disease. ACT 112: Negative or not required by law. Electronically signed by: Kee Torres M.D. 12/18/2023 4:19 PM
[2023-12-19] MEDS ORDERED: MELATONIN 3 MG TAB PO PRN (18:13)
[2023-12-20 07:13] LABS: Hematocrit (blood only) 44.3 % (37.0-47.0); Hemoglobin 14.9 g/dl (12.0-16.0); Mean Corpuscular Hemoglobin 30.6 pg (25.0-34.0); Mean Corpuscular Hgb Conc 33.6 g/dL (32.0-36.0); Mean Platelet Volume 11.4 fL (9.4-12.4); Platelet Count 322 K/uL (130-400); RDW Coefficient of Variation 15.7 % (11.5-14.5); RDW Standard Deviation 51.9 fL (36.4-46.3); Red Blood Count 4.87 M/uL (4.20-5.40); White Blood Count 8.97 K/ul (4.8-10.8)
[2023-12-20 07:38] LABS: Albumin Globulin Ratio 1.7 (0.9-2); Albumin Level 4.2 gm/dl (3.4-5.0); Bilirubin,Total 1.2 mg/dl (0.2-1.0); Calcium 9.3 mg/dl (8.6-10.3); Creatinine Clr Calc Pharmacy 70.3 ml/min; Est GFR (African American) 84.2 ml/min; Est GFR (Non-African American) 72.6 ml/min; Globulin 2.5 gm/dl (2.5-4.0); Magnesium 2.1 mg/dl (1.7-2.4); Phosphorus 2.7 mg/dl (2.5-4.9); Potassium 3.6 mmol/L (3.5-5.1); Total Protein 6.7 gm/dl (6.0-8.3)
[2023-12-20 07:46] LABS: Estimated Average Glucose 114 mg/dl; Hemoglobin A1C 5.6 % (4.5-5.6)
[2023-12-20] MEDS: METOPROLOL SUCC 25MG EXT REL TAB PO SCH (09:42)
--- NOTE | 2023-12-20 10:29 | Discharge Summary ---
Discharge Summary Date of Service December 20, 2023 Principal Dx & Hospital Course #1 = Principal Diagnosis (1) Atrial fibrillation with rapid ventricular response: (2) RBBB: (3) S/P arthroscopic knee surgery: Plan Patient is a 73-year-old female with past medical history of hyperlipidemia, hypertension who was sent to the ED for atrial fibrillation with RVR. Patient had left knee arthroscopy on 12/18/23 at outside facility for partially torn meniscus. During the procedure; patient went into atrial fibrillation with rapid ventricular rate. Patient denies chest pain, palpitation or shortness of breath. Patient was given Cardizem in the ED; converted to normal sinus rhythm. Atrial fibrillation with RVR, converted to sinus rhythm EKG on admission personally reviewed; atrial fibrillation with RBBB. Ventricular rate of 135 Repeat EKG shows normal sinus rhythm with right bundle branch block Last echocardiogram in April 2017; EF of 60 to 64%; mild focal thickening of the anterior mitral valve leaflet without prolapse. Left ventricular cavity size normal. Repeat echo noting EF 60-65%, mild LVH, trace MR, mild tricuspid regurg TSH wnl Cardiology consulted, appreciate recs. Recommended/stated the following initially: -"Elevated [id number] score due to age and hypertension. -Patient agreeable to oral anticoagulation with Eliquis and low-dose beta- nuria therapy. -No further inpatient cardiac testing or intervention recommended at this time. -Will likely pursue stress testing for further risk stratification when she has recovered from the surgery. -Outpatient cardiology follow-up in 2 to 4 weeks." Pt was initially started on metoprolol however HR in the 40s was noted on telemetry. Per cardiology on day of discharge: -Discharge with Eliquis, no metoprolol -Discharge with K supplement in setting of lisinopril/hctz use -will need 2 week zio after discharge, office to call to set up Orthopedics also consulted for anticoagulation recs in the setting of recent surgery (concern for hematoma formation). recommended/advised the following: -From an orthopedic standpoint, it would be safe for her to initiate anticoagulation at this time. Pt was started on Eliquis 5mg BID Discharged on Eliquis 5mg BID as well as KCl 20meq daily per Cardiology recs Close PCP and Cardiology followup after discharge Elevated high sensitive troponin in setting of atrial fibrillation Demand Ischemia Troponin elevated on admission, with peak Repeat echo noting EF 60-65%, mild LVH, trace MR, mild tricuspid regurg Likely demand in setting of above Cardiology on board as noted above Hypokalemia replete with supplement per cardiology, d/c with supplement as above s/p left knee arthroscopy Hx of left knee meniscal tear Pt with left knee meniscal tear s/p left knee arthroscopy on 12/18/23 at [facility] Orthopedics consulted, recommended/stated the following: -"...status post left knee arthroscopy performed by Dr. Paul on 72 at [facility]. She was transferred from our surgery center to [facility]. -She underwent a successful left knee arthroscopy. -From an orthopedic standpoint, it would be safe for her to initiate anticoagulation at this time. -She can be weight-bear as tolerated on her left lower leg. -She can take down her dressing tomorrow morning and place bandaids over portal sites. -She will follow-up in our office in 10 to 12 days or sooner if she is having any issues." Close orthopedic followup after discharge Hypertension continue on lisinopril/hydrochlorothiazide Hyperlipidemia continue on Lipitor 40 mg once a day Hyperglycemia hgba1c of 5.6 Notes For Next Care Provider Please ensure follow up with Cardiology and Orthopedic Surgery Please continue to monitor potassium level and other electrolytes Medication Changes From Visit Per Cardiology: -Eliquis 5mg BID --Potassium chloride 20mEq daily -NO metoprolol at this time Admission HPI Per Admitting Provider Patient is 73 year old female with PMH HTN, dyslipidemia presented to ER from outpatient surgical center for a-fib RVR. Was getting outpatient arthroscopic left knee meniscal repair today at [facility] surgical center. Post op it was noted patient had tachycardia up to 150's. Patient states "may have felt a little nervous sensation in her chest" at that time. Denies dizziness, SOB, CP. Denies history atrial fibrillation in past. Denies fever/chills, diaphoresis, N/V/D/C, DURON, dizziness, syncope, vision changes, neck pain, orthopnea, cough, sore throat, rhinorrhea, abdominal pain, paresthesias, weakness, extremity edema, rashes, urinary symptoms. Reported patient was given bolus Cardizem prior to ER arrival. Upon ER arrival still tachycardic with afib RVR and RBBB on EKG and was given Cardizem bolus and drip and since converted to normal sinus rhythm. Admission Exam Per Admitting Provider Constitutional: WD/WN, vitals as above, NAD, sitting up in bed, pleasant, conversing easily Respiratory: normal respiratory effort, lungs clear to auscultation, no wheeze, rales, rhonchi. Normal insp/exp effort, no accessory muscle use Cardiovascular: RRR, no murmur, no edema Vessels: no JVD or carotid bruit Chest: normal inspection of chest Abdomen: normal bowel sounds, soft, nontender, no hepatosplenomegaly Musculoskeletal: Left knee bandaged with Kerlix; unable to wiggle her toes. Sensation intact. Neurologic: PERRL, EOMI, accommodation nl, no face palsy, no dysarthria CN's II- XI intact bilaterally and moves all extremities Psychiatric: A+Ox3, euthymic affect Discharge Exam General: Alert, oriented. No acute distress Psych: Appropriate mood and affect Neuro: No gross deficits HEENT: NC/AT CV: RRR, Normal s1, s2. No murmurs appreciated Resp: Breath sounds clear bilaterally, no increased effort of breathing. Abdomen: Soft, nontender, nondistended. Extremities: L knee and leg w/o bandage, no noted swelling Updated Medication List Medication Instructions Recorded Confirmed Type atorvastatin 40 mg tablet 40 mg PO DAILY 03/19/23 12/18/23 History lisinopril 20 1 tab PO DAILY 03/19/23 12/18/23 History mg-hydrochlorothiazide 25 mg tablet multivitamin 1 tab PO DAILY 12/18/23 12/18/23 History apixaban 5 mg tablet (Eliquis) 5 mg PO BID #60 tabs 12/20/23 Rx potassium chloride 20 mEq 20 meq PO QAM #30 tabs 12/20/23 Rx tablet,extended release(part/cryst) Hospital Stay Data Consultations 12/18/23 18:50 ED Decision to Admit Stat 12/19/23 08:00 Consult Cardiology Routine Consult Orthopedic Surgery Routine Diagnostic Imagining Performed Chest X-Ray 12/18/23 15:55 XR chest 1V portable CLINICAL HISTORY: Chest pain, nonspecific TECHNIQUE: Single frontal radiograph of the chest was obtained. Comparison: None available at the time of this dictation. FINDINGS: No lines and tubes are seen. The cardiomediastinal silhouette is normal. The lungs are clear. No evidence of pleural effusion or pneumothorax. IMPRESSION: No acute chest disease. ACT 112: Negative or not required by law. Electronically signed by: Kee Torres M.D. 12/18/2023 4:19 PM Discharge Instructions Given to Patient (Per Discharging Provider) Thao, You were admitted with an episode of atrial fibrillation with rapid ventricular rate likely triggered by your recent surgical procedure. You were seen by the manager welding who recommends that you continue with the blood thinner Eliquis twice a day as prescribed at home. No metoprolol at this time. They also recommend that you take a daily potassium supplement to help with your heart rate since you also take the blood pressure medication lisinopril/hydrochlorothiazide. Cardiology would like to see you in followup as you will need a 2 week heart monitor placed. They will call you to arrange placement. The orthopedic surgeon's office recommended the following: - weight-bear as tolerated on the left lower leg. -can take down the dressing and place bandaids over portal sites. - follow-up in our office (Dr Paul) in 10 to 12 days or sooner if having any issues. Please also keep close follow up with your primary care provider after discharge. Again, please keep close followup with Cardiology, Orthopedic Surgery and your primary care provider after discharge. Please do not hesitate to come back to the emergency room if your symptoms worsen or return. It was a pleasure taking care of you while you were here. Total Time Total Time Spent Total Time Spent (In Minutes): 75
--- NOTE | 2023-12-20 12:35 | Cardiology Progress Note ---
Date of Service December 20, 2023 Assessment & Plan (1) Atrial fibrillation with rapid ventricular response: (2) Hypokalemia: (3) Hypertension: (4) Elevated troponin I level: Plan 12/19/23: Patient admitted to [facility] after developing afib RVR in the post op setting following meniscus repair at outpatient surgery center. Converted to NSR in the ER with IV diltiazem. Started on low dose metoprolol 12.5 mg BID. Currently NSR/sinus bradycardia. Long discussion with patient and family today regarding atrial fibrillation and treatment options. No known history of afib. [id number] score of 3 (Sex, age, HTN). Soon to be 4 (when she turns 74). Anticoagulation therapy is recommended. She was not started on anticoagulation due to knee surgery and awaiting orthopedic evaluation. She was mildly hypokalemia upon arrival. Takes lisinopril/hctz as outpatient for HTN. Likely will benefit from low dose supplement as outpatient. Minimally elevated troponin noted, peaking at 57. Echo results pending No acute ischemic EKG changes. No anginal symptoms Elevated troponin likely due to afib RVR, demand ischemic event. Consider outpatient stress test in the future. Continue statin, metoprolol. Likely to start Eliquis. Further recommendations pending discussion/evaluation with Dr. Moreno 12/20/23: Patient maintaining NSR. She was mildly bradycardic with the beta nuria so this was discontinued. HR currently 50-55 and last dose of beta nuria was 24 hours ago. Will not discharge on any AV oliver blocking agents. [id number] score of 3. Anticoagulation recommended and started on Eliquis 5 mg BID. Recommend 2 week ZIO monitor, to be placed next week. EP follow up after monitor to review results. Will benefit from potassium supplement on discharge given hypokalemia on admission and ongoing use of lisinopril/hctz. Discussed with hospitalist. Anticipate discharge today. Cardiology office will contact patient to arrange ZIO and EP follow up. Will sign off. Please call conflict resolution professional cardiology provider with additional questions or concerns. Case discussed with Dr. Moreno I spent a total of 35 minutes on the date of service in preparation, delivery, and documentation of the care provided to this patient, excluding any time spent in the performance of separately billed services. Marleni Smith PA-C Department of Cardiology, [facility] This chart was completed in part utilizing Speech Voice Recognition Software. Grammatical errors, random word insertions, pronoun errors, and incomplete sentences are an occasional consequence of this system due to software limitations, ambient noise, and hardware issues. Any formal questions or concerns about the content, text, or information contained within the body of this dictation should be directly addressed to the provider for clarification. Admission and Anticipated Discharge Date Admission Date: December 18, 2023 Supervising Physician Co-Signing Physician Notes Attending attestation. I have personally performed a history and physical examination on the patient. I have reviewed the advance practitioner's documentation, and I agree with, and take responsibility for the plan of care. 73-year-old female transferred from surgical center after orthopedic knee surgery due to rapid atrial fibrillation. Asymptomatic with atrial fibrillation. No recurrence since admission. Beta-nuria discontinued due to resting bradycardia. Continue Eliquis. Stress testing for further risk stratification when she has recovered from the surgery. Outpatient cardiology follow-up in 2 to 4 weeks. Thank you for allowing us to participate in the care of your patient. I spent a total of 20 minutes on the date of service in preparation, delivery, and documentation of the care provided to this patient, excluding any time spent in the performance of separately billed services. James Moreno DO, [facility] Subjective Patient is resting comfortably in chair. Anxious for discharge. Mild bradycardia noted this morning. Has not received beta nuria since yesterday morning. HR in the 50's. remains Sinus. No recurrent afib. No dizziness or lightheadedness. Review of Systems Review of Systems: All systems reviewed & are unremarkable except as noted in HPI & below Physical Exam Constitutional: WD/WN, vitals as above well developed; no acute distress Neck: normal visual inspection Respiratory: normal respiratory effort Auscultation: lungs clear to aus cultation bilaterally Cardiovascular: Rate/Rhythm: regular rate and regular rhythm Heart Sounds: normal S1 and normal S2; no murmur Vessels: no JVD Extremities: no edema (left knee wrapped) Gastrointestinal (Abdomen): normal bowel sounds, soft, nontender, no hepatosplenomegaly Skin: no rashes, warm and dry Neurologic: PERRL, EOMI, accommodation nl, no face palsy, no dysarthria Psychiatric: A+Ox3, euthymic affect Results & Data Vital Signs (Past 12 Hours) Vital Signs Temp Pulse Pulse Resp BP Pulse Ox O2 Del Method 12/20/23 10:34 36.7 C 54 L 21 113/76 96 Room Air 12/20/23 08:52 49 L 12/20/23 08:04 36.8 C 59 L 21 153/84 H 98 Room Air 12/20/23 02:55 36.3 C L 51 L 16 129/74 98 Room Air Laboratory Results Cardiac Enzymes 12/19/23 12/19/23 12/20/23 Range/Units 12:21 17:58 06:18 AST 30 (13-39) U/L Troponin I High Sens 48.8 H 41.1 H (0-14) pg/ml CBC 12/20/23 Range/Units 06:18 WBC 8.97 (4.8-10.8) K/ul RBC 4.87 (4.20-5.40) M/uL Hgb 14.9 (12.0-16.0) g/dl Hct 44.3 (37.0-47.0) % Plt Count 322 (130-400) K/uL Comprehensive Metabolic Panel 12/20/23 Range/Units 06:18 Sodium 142 (136-145) mmol/L Potassium 3.6 (3.5-5.1) mmol/L Chloride 106 (98-107) mmol/L Carbon Dioxide 31 (21-32) mmol/L BUN 16 (6-23) mg/dl Creatinine 0.80 (0.6-1.2) mg/dl Glucose 87 (70-99(Fasting)) mg/dl Calcium 9.3 (8.6-10.3) mg/dl AST 30 (13-39) U/L ALT 21 (7-52) U/L Alkaline Phosphatase 77 (34-104) U/L Total Protein 6.7 (6.0-8.3) gm/dl Albumin 4.2 (3.4-5.0) gm/dl Intake and Output 12/19/23 12/20/23 12/20/23 22:59 06:59 14:59 Intake Total 720 / 970 Balance 720 / 970 Intake: Oral 720 / 970 Other: # Unmeasured Voids 1 Weight 84.6 kg Weight Measurement Method Built in [facility] Diagnostic Findings Telemetry: Sinus bradycardia at 50-55 bmp currently. No recurrent atrial fibrillation. Echo report reviewed: Normal LVEF at 60-65% no wall motion abnormalities. LA size is normal Trace MR Mild TR no pulm hypertension Medications Administered Current Inpatient Medications Acetaminophen (Acetaminophen 325 Mg Tab) 650 mg PO Q4H PRN PRN Reason: Pain or Fever Stop: 01/17/24 21:33 Last Admin: 12/19/23 08:38 Dose: 650 mg Apixaban (Apixaban 5 Mg Tablet) 5 mg PO BID SHABNAM Stop: 01/18/24 12:44 Last Admin: 12/20/23 08:29 Dose: 5 mg Atorvastatin Calcium (Atorvastatin 40 Mg Tab) 40 mg PO DAILY SHABNAM Stop: 01/18/24 08:59 Last Admin: 12/20/23 08:30 Dose: 40 mg Lisinopril/HCTZ (Lisinopril/Hctz 20/25mg 1 Tab) 1 tab PO DAILY SHABNAM Stop: 01/18/24 08:59 Last Admin: 12/20/23 08:30 Dose: 1 tab Melatonin (Melatonin 3 Mg Tab) 3 mg PO HS PRN PRN Reason: Sleep Stop: 01/18/24 18:12 Multivitamins (Multivitamin Tab) 1 tab PO QAM SHABNAM Stop: 01/18/24 08:59 Last Admin: 12/20/23 08:30 Dose: 1 tab Ondansetron HCl (Ondansetron Inj 2 Mg/Ml 2 Ml Vial) 4 mg IV Q6H PRN PRN Reason: Nausea Stop: 01/17/24 21:33 Polyethylene Glycol (Polyethylene (Miralax) 17 Gm Pack) 17 gm PO DAILY PRN PRN Reason: Constipation Stop: 01/17/24 21:33 Potassium Chloride (Potassium Chloride Crtab 20 Meq Tabcr) 20 meq PO QAM SHABNAM Stop: 01/20/24 08:59
[2023-12-21] MEDS ORDERED: POTASSIUM CHLORIDE CRTAB 20 MEQ TABCR PO SCH (09:00)
== END 2023-12-20 14:32 | disposition home or self-care (01) | DRG 309 ==
LOC: ED 15:47 → SUATTDRO 19:53 → 2S 19:53
DX: Z83.3 Family history of diabetes mellitus; G89.18 Other acute postprocedural pain; I24.89 Other forms of acute ischemic heart disease; I10 Essential (primary) hypertension; I45.10 Unspecified right bundle-branch block; E78.5 Hyperlipidemia, unspecified; E87.6 Hypokalemia; I48.91 Unspecified atrial fibrillation